=== PATIENT | male | born 1975 | race Caucasian/White ===

== ENCOUNTER 2020-06-27 11:07 | Outpatient (REF) | payer OTHER, SELFPAY ==
--- NOTE | ~2020-06-27 | XR_ITS ---
EXAMINATION: XR LUMBOSACRAL SPINE CLINICAL INFORMATION: Left-sided sciatica COMPARISON: CT 04/07/2016 TECHNIQUE: Three views of the lumbosacral spine. FINDINGS: There is no fracture or subluxation. Vertebral body height and alignment is maintained. Mild disc space narrowing of L4-L5. The sacroiliac joints are symmetric. The visualized sacrum is intact. The bowel gas pattern is unremarkable. XR/XR lumbar spine 2-3V IMPRESSION: Mild disc space narrowing of L4-L5.
== END 2020-06-27 11:08 | disposition home or self-care (01) ==
LOC: HO.XRAY 11:07
PROVIDERS: PCP Family Medicine; Visit Provider Family Medicine
DX: M54.32 Sciatica, left side (principal)
CPT/HCPCS: 72100

== ENCOUNTER 2020-08-23 09:00 | Outpatient (RCR) | payer OTHER, SELFPAY | END 2020-08-24 08:00 | disposition home or self-care (01) | LOC: HO.PT 09:00 | PROVIDERS: PCP Family Medicine; Visit Provider Family Medicine | DX: M54.32 Sciatica, left side (principal) | CPT/HCPCS: 97110; 97112; 97140; 97161 ==

== ENCOUNTER → 2020-12-17 08:41 | Outpatient (BNVA) | payer OTHER, SELFPAY | PROVIDERS: PCP Family Medicine; Visit Provider Internal Medicine Cardiovascular Disease | DX: I48.0 Paroxysmal atrial fibrillation (principal) | CPT/HCPCS: 93005 ==

== ENCOUNTER 2021-05-31 08:29 | Outpatient (REF) | payer OTHER, SELFPAY ==
[2021-05-31 09:39] LABS: Cholesterol 173 mg/dL; Glucose Fasting 83 mg/dL (60-99); HDL Cholesterol 45 mg/dL; LDL Cholesterol Calculated 105 mg/dl; Triglycerides 115 mg/dL
== END 2021-05-31 08:30 | disposition home or self-care (01) ==
LOC: HO.LAB 08:29
PROVIDERS: PCP Family Medicine; Visit Provider Family Medicine
DX: Z82.49 Family history of ischemic heart disease and other diseases of the circulatory system (principal)
CPT/HCPCS: 36415; 80061; 82947

== ENCOUNTER 2023-08-18 22:17 | Emergency (ER) | payer OTHER, SELFPAY ==
--- NOTE | 2023-08-18 | ECG_ITS ---
Test Reason : CHEST PAIN Blood Pressure : / mmHG Vent. Rate : 064 BPM Atrial Rate : 064 BPM P-R Int : 184 ms QRS Dur : 100 ms QT Int : 416 ms P-R-T Axes : 012 003 035 degrees QTc Int : 429 ms Normal sinus rhythm Normal ECG When compared with ECG of 07-JAN-2017 16:06, No significant change was found Referred By: Generic ED Physician Electronically Signed By:CASEY RODRIGUES
[2023-08-18 22:28] VITALS: BP 128/85; PULSE 64; RESP 20; TEMP 37; O2SAT 97; BMI 29.3
--- NOTE | 2023-08-18 22:33 | MHC.EDTECH ---
PATIENT EKG TAKEN AND WAS READ BY PROVIDER .
[2023-08-18] MEDS: Ondansetron ODT 4 MG TAB.RAPDIS TRANSLINGU (22:34)
--- NOTE | 2023-08-18 22:53 | MHC.EDTECH ---
PATIENT BLOOD DRAWN ,FLU/RSV/COVID AND STREP SWAB COLLECTED AND SENT TO LAB .
[2023-08-18 22:54] LABS: MANUAL DIFF FLAG NO
[2023-08-18 22:56] LABS: Basophils Percent Auto 0.6 % (0-2); Eosinophils Absolute Auto 0.6 X10*3/uL (0.0-0.4); Eosinophils Percent Auto 8.8 % (0-4); Hematocrit 43.2 % (42.0-52.0); Hemoglobin 14.8 g/dl (14.0-18.0); Imm Gran Abs Auto 0.02 X10*3/uL (0.00-0.03); Imm Gran Pct Auto 0.3 % (0.0-0.4); Lymphocytes Absolute Auto 1.5 X10*3/uL (1.2-4.9); Lymphocytes Percent Auto 22.8 % (20-40); Mean Corpuscular HGB Conc 34.3 g/dl (31.0-36.0); Mean Corpuscular Hemoglobin 30.5 pg (27.0-33.0); Mean Corpuscular Volume 88.9 fL (80.0-98.0); Mean Platelet Volume 10.1 fL (9.4-12.4); Monocytes Absolute Auto 0.6 X10*3/uL (0.1-1.2); Monocytes Percent Auto 9.4 % (2-11); Neutrophils Absolute Auto 3.9 x10*3/uL (2.0-8.3); Neutrophils Percent Auto 58.1 % (45-73); Platelet Count 211 X10*3/uL (160-400); Red Blood Count 4.86 X10*6/uL (4.60-5.80); Red Cell Distribution Width 11.7 % (11.0-16.0); White Blood Count 6.7 X10*3/uL (4.8-10.8)
[2023-08-18 23:09] LABS: Alanine Aminotransferase 24 U/L (0-40); Albumin Level 4.3 g/dL (3.5-5.0); Alkaline Phosphatase 37 U/L (39-117); Anion Gap 12 (12-20); Aspartate Amino Transferase 20 U/L (5-37); Bilirubin Total 0.3 mg/dL (0.0-1.0); Blood Urea Nitrogen 19 mg/dL (9-16); Calcium 9.3 mg/dL (8.4-10.2); Carbon Dioxide 27 mmol/L (22-29); Chloride 106 mmol/L (96-108); Creatinine Clr Calc Pharmacy 120.9; Estimated Glomerular Filt Rate > 60; Glucose Random 115 mg/dL (60-115); Potassium 3.8 mmol/L (3.3-5.1); Sodium 141 mmol/L (135-145); Total Protein 6.7 g/dL (6.5-8.0)
[2023-08-18 23:12] LABS: IDNOW Serial# 08D9AD1C; Strep A Nucleic Acid Negative (Negative)
[2023-08-18 23:17] LABS: Troponin-I High Sensitivity < 2.7 ng/L (<3.5-35.0)
[2023-08-18 23:33] LABS: Influenza A PCR NEGATIVE (Negative); Influenza B PCR NEGATIVE (Negative); Resp Syncy Virus RNA Qual PCR NEGATIVE (Negative); SARS COV2 PCR INHOUSE NEGATIVE (Negative)
[2023-08-19 01:32] VITALS: BP 107/65; PULSE 56; RESP 18; TEMP 36.6; O2SAT 96
--- NOTE | 2023-08-19 01:34 | ED_ITS ---
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 slightly spinning when he turns his head to the right side came home at 21:00 while sitting noticed chest heaviness without any palpitation no shortness a breath patient did not have any fibrillation episode in last 2 years nonsmoker no substance abuse Related Data Home Medications ?Medication ?Instructions ?Recorded ?Confirmed albuterol sulfate 90 mcg/actuation 2 puff PO QID PRN 12/17/20 12/17/20 aerosol inhaler (ProAir HFA) Previous Rx's ?Medication ?Instructions ?Recorded flecainide 100 mg tablet 100 mg PO Q12H 90 days #180 tabs 12/17/20 diltiazem HCl 120 mg 120 mg PO DAILY #90 caps 12/19/20 capsule,extended release 24 hr meclizine 25 mg tablet 25 mg PO TID PRN dizziness #20 tabs 08/19/23 Allergies Allergy/AdvReac Type Severity Reaction Status Date / Time No Known Allergies Allergy Verified 08/18/23 22:31 [No Known Allergies*] Review of Systems 2 Review of Systems: Yes all other systems are reviewed and are negative PMFSH Past Medical History Medical History Paroxysmal atrial fibrillation Surgical History History of cardioversion Hx of knee surgery Hx of shoulder surgery Family History Family History Father No problems noted. Mother No problems noted. Social History Social History Patient Tobacco Use Status: Never used Tobacco Smoked in Last 30 Days: No Use of substances other than those prescribed or required for medical reasons: No Advance Directives: No Advance Directives Information Provided: No Do you have a plan to hurt others: No Plan Physical Exam 2 Vital Signs: Vital Signs: Last Vital Signs Temp 98.6 F 08/19/23 03:22 Pulse 64 08/19/23 03:22 Resp 18 08/19/23 03:22 BP 103/66 08/19/23 03:22 Pulse Ox 95 08/19/23 03:22 O2 Del Method Room Air 08/19/23 03:22 BMI result Body Mass Index 29.3 Appearance: Alert. Oriented X3. No acute distress. Eyes: PERRLA, No Nystagmus ENT: Pharynx normal. Oral Mucosa moist Neck: Normal inspection. Neck supple. CVS: Normal heart rate and rhythm. Pulses normal. Respiratory: No respiratory distress. Equal air entry bilateral, no wheezing/rales/rhonchi Abdomen: Soft and nontender. Bowel sounds are present, Skin: Skin warm and dry. Normal skin color. Normal skin turgor. Extremities: No lower extremity edema. No calf tenderness Neuro: Oriented X 3. No motor deficit. No sensory deficit.No cerebellar signs , cranial nerves II-XII intact Medications Administered Discontinued Medications Generic Name Dose Route Start Last Admin Trade Name Freq PRN Reason Stop Dose Admin Meclizine HCl 25 mg 08/19/23 02:00 08/19/23 02:17 Meclizine Hcl 25 Mg Tablet PO 08/19/23 02:01 25 mg ONCE ONE Administration Ondansetron HCl 4 mg 08/18/23 22:33 08/18/23 22:34 Ondansetron Odt 4 Mg Tab.Rapdis TRANSLINGU 08/18/23 22:34 4 mg ONCE ONE Administration Medical Decision Making Lab Data [facility] Lab Attestation statement: I reviewed the patient's lab results. 08/18/23 22:50 08/18/23 22:50 Labs: Lab Results 08/18/23 08/19/23 Range/Units 22:50 02:25 WBC 6.7 (4.8-10.8) X10*3/uL RBC 4.86 (4.60-5.80) X10*6/uL Hgb 14.8 (14.0-18.0) g/dl Hct 43.2 (42.0-52.0) % MCV 88.9 (80.0-98.0) fL MCH 30.5 (27.0-33.0) pg MCHC 34.3 (31.0-36.0) g/dl RDW 11.7 (11.0-16.0) % Plt Count 211 (160-400) X10*3/uL MPV 10.1 (9.4-12.4) fL Immature Gran % (Auto) 0.3 (0.0-0.4) % Neut % (Auto) 58.1 (45-73) % Lymph % (Auto) 22.8 (20-40) % Childress % (Auto) 9.4 (2-11) % Eos % (Auto) 8.8 H (0-4) % Baso % (Auto) 0.6 (0-2) % Lymph # (Auto) 1.5 (1.2-4.9) X10*3/uL Childress # (Auto) 0.6 (0.1-1.2) X10*3/uL Eos # (Auto) 0.6 H (0.0-0.4) X10*3/uL Baso # (Auto) 0.0 (0.0-0.2) X10*3/uL Abs Immat Gran (auto) 0.02 (0.00-0.03) X10*3/uL Absolute Neuts (auto) 3.9 (2.0-8.3) x10*3/uL Absolute Nucleated RBC 0.000 (0.0-0.012) X10*3/uL Nucleated RBC % (auto) 0.0 (0.0-0.2) /100WBC Sodium 141 (135-145) mmol/L Potassium 3.8 (3.3-5.1) mmol/L Chloride 106 (96-108) mmol/L Carbon Dioxide 27 (22-29) mmol/L Anion Gap 12 (12-20) BUN 19 H (9-16) mg/dL Creatinine 0.87 (0.5-1.4) mg/dL Estim Creat Clear Calc 120.9 Estimated GFR > 60 Random Glucose 115 (60-115) mg/dL Calcium 9.3 (8.4-10.2) mg/dL Magnesium 2.0 (1.6-2.6) mg/dL Total Bilirubin 0.3 (0.0-1.0) mg/dL AST 20 (5-37) U/L ALT 24 (0-40) U/L Alkaline Phosphatase 37 L (39-117) U/L Troponin I High Sens < 2.7 < 2.7 (<3.5-35.0) ng/L Total Protein 6.7 (6.5-8.0) g/dL Albumin 4.3 (3.5-5.0) g/dL Influenza Type A (PCR) NEGATIVE (Negative) Influenza Type B (PCR) NEGATIVE (Negative) RSV RNA Qual (PCR) NEGATIVE (Negative) SARS-CoV-2 RNA (RT-PCR) NEGATIVE (Negative) S. pyogenes GrpA ABRAHAN Negative (Negative) Discharge Plan Discharge Clinical Impression: Chest pain, Benign paroxysmal positional nystagmus, Heat exhaustion Patient Disposition: Home, Self-Care Instructions: Chest Pain (ED), Heat Exhaustion (ED), Benign Paroxysmal Positional Vertigo (ED) Additional Instructions: Drink plenty of fluids Stay in shaded area Your workup for cardiac event is negative at this time Follow with your center consultant for further evaluation Medicine for dizziness as advised Prescriptions: New meclizine 25 mg tablet 25 mg PO TID PRN (Reason: dizziness) Qty: 20 0RF No Action diltiazem HCl 120 mg capsule,extended release 24hr 120 mg PO DAILY Qty: 90 3RF albuterol sulfate [ProAir HFA] 90 mcg/actuation HFA aerosol inhaler 2 puff PO QID PRN flecainide 100 mg tablet 100 mg PO Q12H 90 Days Qty: 180 3RF Interventions: ED Discharge Assessment Last Done: 08/19/23 03:22 Discharge Date/Time: 08/19/23 03:22 Print Language: Frisian
[2023-08-19] MEDS: Meclizine HCl 25 MG TABLET PO (02:17)
--- NOTE | 2023-08-19 02:42 | PC.NURSE ---
this rn assumed care of pt. pt a&ox4, respirations even and unlabored. pt reporting sudden onset of dizziness when standing, pt reports the room felt as if it were spinning, reports episode of nausea but denies vomiting and diarrhea. pt denies chest pain and sob at this time. pt normal sinus on tele 74-76bpm.
[2023-08-19 02:56] LABS: Troponin-I High Sensitivity < 2.7 ng/L (<3.5-35.0)
[2023-08-19 03:21] VITALS: BP 103/66; PULSE 64; RESP 18; TEMP 37; O2SAT 95
[2023-08-19 03:22] VITALS: BP 103/66; PULSE 64; RESP 18; TEMP 37; O2SAT 95
== END 2023-08-19 03:22 | disposition home or self-care (01) ==
PROVIDERS: Emergency Provider Internal Medicine; PCP Physician Assistant Medical
DX: R07.9 Chest pain, unspecified (principal); H81.10 Benign paroxysmal vertigo, unspecified ear; T67.5XXA Heat exhaustion, unspecified, initial encounter; X58.XXXA Exposure to other specified factors, initial encounter; I48.0 Paroxysmal atrial fibrillation; J45.909 Unspecified asthma, uncomplicated; Y93.9 Activity, unspecified; Y92.9 Unspecified place or not applicable; Y99.9 Unspecified external cause status; Z03.818 Encounter for observation for suspected exposure to other biological agents ruled out; Z79.899 Other long term (current) drug therapy
CPT/HCPCS: 0241U; 36415; 80053; 83735; 84484; 85025; 87651; 93005; 99283; 99285

== ENCOUNTER → 2023-08-18 22:17 | Outpatient (BNV) | payer OTHER, SELFPAY | PROVIDERS: Emergency Provider Internal Medicine; PCP Physician Assistant Medical; Visit Provider Internal Medicine | DX: R07.9 Chest pain, unspecified (principal) | CPT/HCPCS: 93010 ==

== ENCOUNTER 2024-06-07 10:16 | Outpatient (AMB) | payer OTHER, SELFPAY ==
--- NOTE | 2024-06-07 10:26 | A.OFFVIS_ITS ---
Vital Signs 06/07/24 10:28 Height 5 ft 11 in Weight 211 lb BMI 29.4 BP 106/68 Blood Pressure Location Rt brachial Position Sitting Pulse 76 Pulse Source Pulse Oximeter Pulse Oximetry (%) 100 Oxygen Delivery Method Room Air Intake Visit Reasons: Asthma Wildlife Technician Required: No Allergies No Known Allergies [No Known Allergies*] Allergy (Verified 06/07/24 10:27) Medication List - Last Reconciled 06/07/24 by Dary Tenorio, [employer]PER[employer] albuterol sulfate 90 mcg/actuation (ProAir HFA) 2 puffs PO QID PRN diltiazem HCl CD 120 mg PO DAILY flecainide 100 mg PO Q12H 90 days meclizine 25 mg PO TID PRN HPI HPI Asthma: Details: Addi is a pleasant 49 year old male, never smoker with underlying asthma and h/o atrial fibrillation. He was referred by PCP for pulmonary evaluation. He details a lifelong history of asthma, exacerbated by environmental factors such as changes in temperature, activity levels, and seasonal variations. He reports frequent use of albuterol inhalers, sometimes multiple times daily. He previously used Flovent but discontinued due to non-adherence. Seasonal allergies are also relevant, with symptoms worsening in spring and fall, managed by daily [id number] allergy medications. He also has multiple animals at home including a dog, cat, goats, horses and chickens. Denies recent allergy testing. He denies need for hospitalizations or intubations related to respiratory distress. The patient's background includes a diagnosis of atrial fibrillation, which is currently untreated with medications but historically managed with Flecanide and Diltiazem, that he has since d/c on his own. He denies any episodes of atrial fibrillation in the last few years. He last saw cardiology in 2020 at [facility] [place]. His environmental and occupational history reveals considerable exposure to silica, working in construction x 30 years. Although he has never smoked, he endorses secondhand smoke exposure from his occupational environment. The patient denies any recent chest x-rays. He denies any pertinent family history. He did have a sleep study years ago which revealed mild ANTOINETTE, AHI 11, however mostly in supine, opting for conservative measures. He currently denies symptoms of ANTOINETTE. [facility] Medical History Paroxysmal atrial fibrillation Surgical History History of cardioversion Hx of knee surgery Hx of shoulder surgery Family History Father No problems noted. Mother No problems noted. Social History Patient Tobacco Use Status: Never used Tobacco Review of Systems Const Denies chills, Denies excessive sweating, Denies fever(s), Denies headache(s) and Denies night sweats Eyes Denies dry eyes, Denies irritation and Denies itchy eyes ENT Reports Normal hearing present, Denies headache(s), Denies nasal congestion, Denies nasal discharge, Denies post nasal drip and Denies sore throat Card Denies chest pain, Denies chest pain at rest, Denies chest pain with activity, Denies claudication, Denies leg edema, Denies orthopnea and Denies paroxysmal nocturnal dyspnea Resp Denies chest congestion, Denies cough, Denies excessive phlegm production, Denies pain on inspiration, Denies pain with cough, Denies stridor and Denies wheezing Musc Denies myalgias Neuro Reports Normal hearing present and Denies headache(s) Endo Denies excessive sweating Ignacio/Lymph Denies lymphadenopathy Aller/Immun Denies itchy eyes, Denies seasonal rhinorrhea and Denies wheezing Physical Exam Vital Signs: Last Vital Signs Pulse 76 06/07/24 10:28 BP 106/68 06/07/24 10:28 Pulse Ox 100 06/07/24 10:28 Oxygen Delivery Method Room Air 06/07/24 10:28 BMI result Body Mass Index 29.4 Const General: cooperative, healthy appearing, comfortable, no acute distress, well developed and alert Orientation/consciousness: patient oriented x3 Limitations: no limitations HEENT Head: Yes normal to inspection, Yes normocephalic and Yes atraumatic Ears: hearing grossly normal bilaterally and external ears normal Eyes General: appearance normal, both eyes and all related structures Eyelids: Yes eyelids normal Sclerae: sclerae normal EOM: EOMs intact bilaterally Neck Neck: Yes normal visual inspection and Yes no lymphadenopathy Lymphatic: no lymphadenopathy noted Chest Chest palpation & inspection: normal inspection of the chest Resp Effort & Inspection: normal respiratory effort, able to speak in complete sentences, no audible wheezes, no cough, no stridor, not tachypneic, no tripod positioning and no use of accessory muscles Auscultation: clear to auscultation bilaterally Cardio Jugular venous distension: no JVD Rate: regular rate Rhythm: regular rhythm Skin Other: warm, dry General skin exam: no rashes or lesions noted Neuro General: patient oriented x3 Cranial nerves: Yes Normal hearing present Cognition (Neuro): normal cognition Gait exam (Neuro): Normal gait present Extrem General: Yes normal to inspection, Yes capillary refill normal, Yes no clubbing, cyanosis or edema and Yes no pedal edema Psych Appearance: grossly normal and well kempt Speech and movement: Normal speech and movement present and Clear speech present Affect: normal affect Attitude: cooperative Thought process: Normal thought process present Thought content: Normal thought content present Insight: Good insight present (Psych) Judgement: Good judgement present (Psych) Assessment & Plan Assessment & Plan (1) Asthma: Code(s): J45.909 - Unspecified asthma, uncomplicated Category: Medical (2) Environmental allergies: Code(s): Z91.09 - Other allergy status, other than to drugs and biological substances Category: Medical (3) Dyspnea: Code(s): R06.00 - Dyspnea, unspecified Category: Medical Plan Addi's symptoms are likely related to poorly controlled asthma. Will send for PFT and empirically start Breo. Discussed importance of good oral hygiene to prevent thrush. Will send for RAST to assess for an allergic component. Will send for CXR to assess for any underlying parenchymal conditions contributing to symptoms, consider chest CT given silica exposure. Discussed importance of following up with cardiology given h/o atrial fibrillation and self d/c flecanide and diltiazem. All questions were answered and patient is in agreement of plan. Will follow up in 6-8 weeks or sooner if needed. Orders: Orders XR chest 2V 06/07/24 R06.00 - Dyspnea, unspecified Complete Blood Count Auto Diff 06/07/24 Z91.09 - Other allergy status, other than to drugs and biological substances Immunoglobulin E 06/07/24 Z91.09 - Other allergy status, other than to drugs and biological substances Resp Allergy Profile Region I 06/07/24 Z91.09 - Other allergy status, other than to drugs and biological substances Other Ref Test - [facility] [place] 06/07/24 Z91.09 - Other allergy status, other than to drugs and biological substances PFT pulmonary function test 06/07/24 J45.909 - Unspecified asthma, uncomplicated Medications: New fluticasone furoate-vilanterol 100-25 mcg/dose (Breo Ellipta) 1 inh inhalation DAILY 60 ea 3RF Coding Level of Care Code New Pt Level 4 (35755) Diagnoses Asthma J45.909 Environmental allergies Z91.09 Dyspnea R06.00
[2024-06-07 10:28] VITALS: BP 106/68; PULSE 76; O2SAT 100; BMI 29.4
--- OUTSIDE RECORDS SUMMARY | 2024-06-07 11:52 | XMS_ITS | Encounter Summary ---
Author Organization [facility] Address [address] [place] [address] Care Team Providers Care Mosaic Tile Maker Name Role Phone Puneet Iván MANDEL Primary Care Provider [phone] Reason for Visit * Reason Onset Date Comments Special procedure 05/11/2024 Encounter Details Date Type Department Care Team (Late st Contact Info) Description 05/11/2024 Telephone Gastroenterology - [address] [place] [id number] Cr Zambrano MD [address] [place] [address] Special procedure Social History Tobacco Use Types Packs/Day Years Used Date Smoking Tobacco: Never Assessed Sex and Gender Information Value Date Recorded Sex Assigned at Not on file Legal Sex Male 2:27 PM EST Gender Identity Not on file Sexual Orientation Not on file documented as of this encounter Progress Notes * Milagros Cabello - 05/20/2024 10:45 AM EST [facility] J CARLOS ZAMBRANO 07/04/24 930AM - [facility]. * Milagros Cabello - 05/17/2024 12:17 PM EST 2nd attempt to schedule a patient left message to call back * Lay Charles - 05/17/2024 10:48 AM EST PT RETURNING CALL * Brandi Leiva - 05/12/2024 9:31 AM EST 1st attempt to schedule a patient left message to call back * Cecilia Loo MA - 05/11/2024 2:41 PM EST Medications and allergies updated. * Brandi Guerrero - 05/11/2024 2:36 PM EST Records received from [facility] for colonoscopy, given to Adeline to update meds & allergies documented in this encounter Plan of Treatment Not on file documented as of this encounter Visit Diagnoses Not on filedocumented in this encounter Historical Medications * This list may reflect changes made after this encounter. Medication Sig Dispense Quantity Refills Last Filled Start D ate End Date valACYclovir (VALTREX) 1 gram tablet 05/10/2024 albuterol HFA (PROAIR HFA ; PROVENTIL HFA ; VENTOLIN HFA) 90 mcg/actuation inhaler 05/10/2024 added in this encounter Care Teams Mosaic Tile Maker Relationship Specialty Start Date End Date Iván Teixeira PA [address] [place] [id number] PCP - General Physician Pricing/Signage Team Member 05/11/24 documented as of this encounter
--- OUTSIDE RECORDS SUMMARY | 2024-06-07 11:52 | XMS_ITS | Continuity of Care Document ---
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 TEQUILA Green Onset: 2023 Obstructive sleep apnea syndrome TEQUILA Green Onset: 05/27/2023 Premature atrial contraction TEQUILA Green Onset: 05/27/2023 Fatigue TEQUILA Green Onset: 2023 Atrial fibrillation TEQUILA Green Onset: Social History Type Date Description Comments Sex Unknown Lives With Spouse Lives With Sons Lives With Daughter ETOH Use Occasionally consumes alcoho l Tobacco Use Start: Unknown Patient has never smoked Allergies and adverse reactions Description No Known Drug Allergies Medications Active Medications SIG Qnty Indications Ordering Provider Date [id number] Tablets Take 1 Tablet By Mouth Twice Daily For Suppression. Take With Full Glass Of Josie Contreras Albuterol Sulfate JTV323(90Base) mcg/Act Aerosol Inhale 1 puff By Mouth Into The Lungs Every 6 Hours as Needed Iván Teixeira PA Vital Signs Date Vital Result Comment 05/27/2023 3:20pm BP Systolic 100 mmHg BP Diastolic 64 mmHg Heart Rate 69 /min Height 71 inches 5'11 Weight 210.00 lb BMI (Body Mass Index) 29.3 kg/m2 Results Test Acquired Date Facility Test Result H/L Range Note Lipid Panel 05/29/2023 [facility] Cholesterol, Total 238 mg/dL High (<200) Triglyceride 91 mg/dL (<150) 1 HDL Chol 64 mg/dL (>39) LDL Cholesterol , Calculated 156 mg/dL High (0-130) Non HDL Cholesterol (Calc) 174 mg/dL High (<160) Complete Abc With Diff 05/29/2023 [facility] WBC 5.0 K/MM3 (4.0-11. 0) RBC 4.93 M/MM3 (4.70-6. 10) HGB 14.4 GM/DL (13.7-17 .1) HCT 44.1 % (40.5-50 .0) MCV 89.5 FL (80.0-94 .0) MCH 29.2 pg (27.0-34 .0) MCHC 32.7 g/dL Low (33.0-37 .0) PLT 223 K/MM3 (150-460 ) RDW-SD 47.9 FL High (<47.0) MPV 11.0 FL (9.4-12. 4) Automated NRBC 0.0 #/100WBC'S Abs. NRBC 0.0 K/MM3 Neut # 3.1 K/MM3 (1.3-7.0 ) Lymph # 1.2 K/MM3 (0.8-3.1 ) Andrews# 0.4 K/MM3 (0.4-1.3 ) Eo # 0.2 K/MM3 (0.0-0.4 ) Baso # 0.0 K/MM3 (0.0-0.1 ) Abs. Imm Gran 0.0 K/MM3 Neut 61.7 % (44-76) Lymph 24.0 % (15-43) Monocyte 8.7 % (4.5-10. 5) Eo 4.4 % (0-6) Baso 0.8 % (0-2) Imm Gran 0.4 % Free Testosterone 05/29/2023 [facility] Testosterone, Total, LC/MS 259.6 Low 2 Percent Free Testosterone 3.47 3 Free Testosterone, Equilibrium 9.01 4 FSH 05/29/2023 [facility] FSH 3.4 MIU/ML (1.5-12. 4) 5 LH 05/29/2023 [facility] LH 3.0 MIU/ML (1.5-12. 4) 6 Prolactin 05/29/2023 [facility] Prolactin 8.8 NG/ML (4.0-15. 2) 1 Patient not fasting 2 Reference range: 264 .0 to 916.0 Unit: ng/dL (NOTE) This [facility] LC/MS-MS method is currently certified by the CDC Hormone Standardization Program (HoSt). Adult male reference interval is based on a population of healthy nonobese males (BMI <30) between 19 and 39 years old. Patricia et.al. JCEM 2017,102;0139-5851. PMID: 55807535. This test was developed and its performance characteristics determined by [facility]. It has not been cleared or approved by the Food and Drug Administration. 3 Reference range: 1.5 0 to 4.20 Unit: % 4 Reference range: 5.0 0 to 21.00 Unit: ng/dL Test performed at [address] [address] 5 Reference Range: Follicular: 3.5-12.5 mIU/mL Ovulation: 4.7-21.5 mIU/mL Luteal: 1.7-7.7 mIU/mL Postmenopausal: 25.8-134.8 mIU/mL 6 Reference Range: Follicular: 2.4-12.6 mIU/mL Ovulation: 14.0-95.6 mIU/mL Luteal: 1.0-11.4 mIU/mL Postmenopausal: 7.7-58.5 mIU/mL Medical Devices Description No Information Available Encounters Type Date Location Provider Dx Diagnosis Office Visit 05/27/2023 3:00p Main Office TEQUILA Green E29.1 Testicular hypofunction R53.83 Other fatigue R68.82 Decreased libido Assessments Date Code Description Provider 05/29/2023 E29.1 Testicular hypofunction TEQUILA Dangelo 05/27/2023 E29.1 Testicular hypofunction TEQUILA Dangelo 05/27/2023 R53.83 Fatigue NOS TEQUILA Green 05/27/2023 R68.82 Decreased libido TEQUILA Rodriguez Plan of Treatment No Information Available Functional Status Description No Information Available Mental Status Description No Information Available Referrals Description No Information Available
--- OUTSIDE RECORDS SUMMARY | 2024-06-07 11:52 | XMS_ITS | Clinical Summary ---
Author Organization [facility] [address] [facility] Address [address] [place] [address] Phone Care Team Providers Care Transportation Agent Name Role Phone Iván Teixeira Primary Care Provider [phone] Allergies No known active allergies Medications albuterol HFA (PROAIR HFA ; PROVENTIL HFA ; VENTOLIN HFA) 90 mcg/actuation inhaler 05/10/2024 Active valACYclovir (VALTREX) 1 gram tablet 05/10/2024 Active Encounters Date Type Department Care Team Description 05/11/2024 Telephone Gastroenterology - [address] [address] Cr Khalil MD Special procedure from Last 3 Months Social History Tobacco Use Types Packs/Day Years Used Date Smoking Tobacco: Never Assessed Sex and Gender Information Value Date Recorded Sex Assigned at Not on file Legal Sex Male 2:27 PM EST Gender Identity Not on file Sexual Orientation Not on file Plan of Treatment Health Maintenance Due Date Last Done Comments DTaP,Tdap,and Td Vaccines (1 - Tdap) 1993 Hepatitis B Vaccines (1 of 3 - 19+ 3-dose series) 1993 COVID-19 Vaccine ( - 2023-2 5 season) 2023 Influenza Vaccine (#1) 2023 Pneumococcal Vaccine: 50+ Ye ars (1 of 1 - PCV) 2024 Zoster Vaccines (1 of 2) 2024 Cholesterol Screening (Lipid Panel) 05/11/2024 Colorectal Cancer Screening: Colonoscopy 05/11/2024 Depression Screening 05/11/2024 HIV Screening 05/11/2024 Hepatitis C Screening 05/11/2024 Social Influencers of Health Screening 05/11/2024 HIB Vaccines Aged Out No longer eligi ble based on patient's age to complete this topic HPV Vaccines Aged Out No longer eligi ble based on patient's age to complete this topic Hepatitis A Vaccines Aged Out No long er eligible based on patient's age to complete this topic IPV Vaccines Aged Out No longer eligi ble based on patient's age to complete this topic MMR Vaccines Aged Out No longer eligi ble based on patient's age to complete this topic Meningococcal ACWY Vaccine Aged Out N o longer eligible based on patient's age to complete this topic Meningococcal B Vacine Aged Out No lo nger eligible based on patient's age to complete this topic Pneumococcal Vaccine: Pediat rics (0 to 5 Years) and At-Risk Patients (6 to 64 Years) Aged Out No longer eligible b ased on patient's age to complete this topic RSV Immunization Patients Un joleen 20 months Aged Out No longer eligible b ased on patient's age to complete this topic Varicella Vaccines Aged Out No longer eligible based on patient's age to complete this topic Insurance [facility] [address] [place] [address] Care Teams Transportation Agent Relationship Specialty Start Date End Date Iván Teixeira PA [address] [place] [phone] PCP - General Physician Compounding Technician 05/11/24
== END 2024-06-07 10:55 | disposition home or self-care (01) ==
LOC: HO.HPSW 10:17
PROVIDERS: PCP Physician Assistant Medical; Referring Provider Physician Assistant Medical; Visit Provider Nurse Practitioner Family
DX: J45.909 Unspecified asthma, uncomplicated (principal); Z91.09 Other allergy status, other than to drugs and biological substances; R06.00 Dyspnea, unspecified
CPT/HCPCS: 99204

== ENCOUNTER → 2024-06-07 10:16 | Outpatient (BNVA) | payer OTHER, SELFPAY | PROVIDERS: PCP Physician Assistant Medical; Referring Provider Physician Assistant Medical; Visit Provider Nurse Practitioner Family ==

== ENCOUNTER 2024-06-07 11:26 | Outpatient (REF) | payer OTHER, SELFPAY ==
[2024-06-07 14:21] LABS: MANUAL DIFF FLAG NO
[2024-06-07 14:26] LABS: Basophils Absolute Auto 0.1 X10*3/uL (0.0-0.2); Basophils Percent Auto 0.9 % (0-2); Eosinophils Absolute Auto 0.4 X10*3/uL (0.0-0.4); Eosinophils Percent Auto 5.4 % (0-4); Hematocrit 44.7 % (42.0-52.0); Hemoglobin 14.9 g/dl (14.0-18.0); Imm Gran Abs Auto 0.02 X10*3/uL (0.00-0.03); Imm Gran Pct Auto 0.3 % (0.0-0.4); Lymphocytes Absolute Auto 1.3 X10*3/uL (1.2-4.9); Lymphocytes Percent Auto 19.8 % (20-40); Mean Corpuscular HGB Conc 33.3 g/dl (31.0-36.0); Mean Corpuscular Hemoglobin 28.4 pg (27.0-33.0); Mean Corpuscular Volume 85.3 fL (80.0-98.0); Monocytes Absolute Auto 0.5 X10*3/uL (0.1-1.2); Monocytes Percent Auto 7.9 % (2-11); Neutrophils Absolute Auto 4.4 x10*3/uL (2.0-8.3); Neutrophils Percent Auto 65.7 % (45-73); Platelet Count 245 X10*3/uL (160-400); Red Blood Count 5.24 X10*6/uL (4.60-5.80); Red Cell Distribution Width 12.8 % (11.0-16.0); White Blood Count 6.7 X10*3/uL (4.8-10.8)
[2024-06-14 10:51] LABS: Canary Droppings Ab NEGATIVE; Chicken Serum Ab NEGATIVE; Cockatiel Droppings Ab NEGATIVE; Finch Droppings Ab NEGATIVE; Parakeet Droppings Ab NEGATIVE; Parakeet Serum Ab NEGATIVE; Pigeon/Dove Serum Ab NEGATIVE
[2024-06-14 10:52] LABS: Parrot Droppings Ab NEGATIVE; Parrot Serum Ab NEGATIVE; Pigeon/Dove Droppings Ab NEGATIVE
[2024-06-16 12:48] LABS: Class Alternaria alternata 2; Class Aspergillus fumigatus 0/1; Class Bermuda Grass 1; Class Birch 0/1; Class Cat Dander 0; Class Cladosporium herbarum 0; Class Cockroach 1; Class Common Ragweed 1; Class Cottonwood 0/1; Class Derm. pterony 0/1; Class Dermatophagoides farinae 0/1; Class Dog Dander 0; Class Elm 2; Class Maple Box Elder 0/1; Class Mountain Cedar 0/1; Class Mouse Urine Protein 0; Class Mugwort 0/1; Class Oak 1; Class Penicillium crysogenum 0/1; Class Rough Pigweed 1; Class Sheep Sorrel 1; Class Sycamore 1; Class Timothy Grass 2; Class Walnut Tree 0/1; Class White Ash 1; Class White Mulberry 0/1; D001 IgE D pteronyssinus 0.13 kU/L; D002 - IgE D farinae 0.14 kU/L; E001 - IgE Cat Dander <0.10 kU/L; E005 - IgE Dog Dander <0.10 kU/L; E072-IgE Mouse Urine <0.10 kU/L; G002 IgE Bermuda Grass 0.67 kU/L; G006 - IgE Timothy Grass 0.72 kU/L; Immunoglobulin E 55 kU/L (<OR=114); M001 IgE Penicillium chrysogen 0.13 kU/L; M002 - IgE Cladosporium herbar <0.10 kU/L; M003 - IgE Aspergillus fumigat 0.34 kU/L; M006 - IgE Alternaria alternat 1.61 kU/L; T001 IgE Maple/Box Elder 0.29 kU/L; T003 IgE Common Silver Birch 0.18 kU/L; T006 - IgE Cedar, Mountain 0.18 kU/L; T007 - IgE Oak, White 0.47 kU/L; T010 - IgE Walnut 0.34 kU/L; T011 - IgE Maple Leaf Sycamore 0.37 kU/L; T014 - IgE Cottonwood 0.33 kU/L; T015 - IgE Ash, White 0.36 kU/L; T070 - IgE White Mulberry 0.13 kU/L; W001 - IgE Ragweed, Short 0.53 kU/L; W014 IgE Pigweed, Common 0.43 kU/L; W018 IgE Sheep Sorrel 0.69 kU/L
== END 2024-06-07 11:27 | disposition home or self-care (01) ==
LOC: HO.WFDLDS 11:26
PROVIDERS: Visit Provider Nurse Practitioner Family
DX: Z91.09 Other allergy status, other than to drugs and biological substances (principal)
CPT/HCPCS: 36415; 82785; 85025; 86003; 86331

== ENCOUNTER 2024-08-02 08:49 | Outpatient (AMB) | payer OTHER, SELFPAY ==
[2024-08-02 08:52] VITALS: BP 104/68; PULSE 70; O2SAT 97; BMI 29.9
--- NOTE | 2024-08-02 08:52 | A.OFFVIS_ITS ---
Vital Signs 08/02/24 08:52 Height 5 ft 11 in Weight 214 lb 6 oz BMI 29.9 BP 104/68 Blood Pressure Location Rt brachial Position Sitting Pulse 70 Pulse Source Pulse Oximeter Pulse Oximetry (%) 97 Oxygen Delivery Method Room Air Intake Visit Reasons: Asthma Allergies No Known Allergies [No Known Allergies*] Allergy (Verified 08/02/24 08:55) HPI HPI Asthma: Details: Addi is a pleasant 49 year old male, never smoker with underlying asthma and h/o atrial fibrillation. He was initially referred by PCP for pulmonary evaluation. He details a lifelong history of asthma, exacerbated by environmental factors such as changes in temperature, activity levels, and seasonal variations. He reported frequent use of albuterol inhalers, sometimes multiple times daily, previously on Flovent with suboptimal effect. At the last visit, Breo then Advair were sent however both were not financially feasible, therefore has only been using Albuterol MDI. An order was also placed for CXR and PFT however patient did not have these performed/scheduled. Today presents to review RAST. Since the last visit, he was evaluated by ENT however report not available. [facility] Medical History Paroxysmal atrial fibrillation Surgical History History of cardioversion Hx of knee surgery Hx of shoulder surgery Family History Father No problems noted. Mother No problems noted. Social History Patient Tobacco Use Status: Never used Tobacco Review of Systems Const Denies chills, Denies excessive sweating, Denies fever(s), Denies headache(s) and Denies night sweats Eyes Denies dry eyes, Denies irritation and Reports itchy eyes ENT Reports Normal hearing present, Denies headache(s), Denies nasal congestion, Denies nasal discharge, Reports post nasal drip and Denies sore throat Card Denies chest pain, Denies chest pain at rest, Denies chest pain with activity, Denies claudication, Denies leg edema, Reports dyspnea on exertion, Denies orthopnea and Denies paroxysmal nocturnal dyspnea Resp Denies change in phlegm color, Denies chest congestion, Reports cough, Denies hemoptysis, Denies excessive phlegm production, Denies pain on inspiration, Denies pain with cough, Reports dyspnea on exertion, Denies stridor and Denies wheezing Musc Denies myalgias Neuro Reports Normal hearing present and Denies headache(s) Endo Denies excessive sweating Ignacio/Lymph Denies lymphadenopathy Aller/Immun Reports itchy eyes and Denies wheezing Physical Exam Vital Signs: Last Vital Signs Pulse 70 08/02/24 08:52 BP 104/68 08/02/24 08:52 Pulse Ox 97 08/02/24 08:52 Oxygen Delivery Method Room Air 08/02/24 08:52 BMI result Body Mass Index 29.9 Const General: cooperative, healthy appearing, comfortable, no acute distress, well developed and alert Orientation/consciousness: patient oriented x3 Limitations: no limitations HEENT Head: Yes normal to inspection, Yes normocephalic and Yes atraumatic Ears: hearing grossly normal bilaterally and external ears normal Eyes General: appearance normal, both eyes and all related structures Eyelids: Yes eyelids normal Sclerae: sclerae normal EOM: EOMs intact bilaterally Neck Neck: Yes normal visual inspection and Yes no lymphadenopathy Lymphatic: no lymphadenopathy noted Chest Chest palpation & inspection: normal inspection of the chest Resp Effort & Inspection: normal respiratory effort, able to speak in complete sentences, no audible wheezes, no cough, no stridor, not tachypneic, no tripod positioning and no use of accessory muscles Auscultation: clear to auscultation bilaterally Cardio Jugular venous distension: no JVD Rate: regular rate Rhythm: regular rhythm Skin Other: warm, dry General skin exam: no rashes or lesions noted Neuro General: patient oriented x3 Cranial nerves: Yes Normal hearing present Cognition (Neuro): normal cognition Gait exam (Neuro): Normal gait present Extrem General: Yes normal to inspection, Yes capillary refill normal, Yes no clubbing, cyanosis or edema and Yes no pedal edema Psych Appearance: grossly normal and well kempt Speech and movement: Normal speech and movement present and Clear speech present Affect: normal affect Attitude: cooperative Thought process: Normal thought process present Thought content: Normal thought content present Insight: Good insight present (Psych) Judgement: Good judgement present (Psych) Assessment & Plan Assessment & Plan (1) Asthma: Code(s): J45.909 - Unspecified asthma, uncomplicated Category: Medical (2) Environmental allergies: Code(s): Z91.09 - Other allergy status, other than to drugs and biological substances Category: Medical (3) Dyspnea: Code(s): R06.00 - Dyspnea, unspecified Category: Medical Plan Reviewed RAST which revealed multiple environmental allergens, encouraged daily use of antihistamine. Patient given number for centralized scheduling to scheduled PFT. At the time of his PFT will obtain CXR. Will attempt to send in AirDuo as Breo/Advair costly. He is aware to call office if unable to obtain. All questions were answered and patient is in agreement of plan. Will follow up to review results or sooner if needed. Medications: New fluticasone propion-salmeterol 113-14 mcg/actuation (AirDuo RespiClick) 1 inh inhalation BID 1 ea 6RF Discontinued fluticasone propion-salmeterol 115-21 mcg/actuation (Advair HFA) Discontinued Reason: Insurance Denied 2 puffs inhalation Q12H 12 grams 3RF fluticasone furoate-vilanterol 100-25 mcg/dose (Breo Ellipta) Discontinued Reason: Insurance Denied 1 inh inhalation DAILY 60 ea 3RF Coding Level of Care Code Est Pt Level 3 (24998) Diagnoses Asthma J45.909 Environmental allergies Z91.09 Dyspnea R06.00
--- OUTSIDE RECORDS SUMMARY | 2024-08-02 09:13 | XMS_ITS | Continuity of Care Document ---
Author Organization [facility] [address] [place] [address] Phone [phone] Care Team Providers Care Rechecker Name Role Phone Iván Teixeira Care Team Information Receiv er [phone] Problems Active Problems Provider Date Asthma TEQUILA [...] Medications SIG Qnty Indications Ordering Provider Date [id number] Tablets Take 1 Tablet By Mouth Twice Daily For Suppression. Take With Full Glass Of Josie Contreras Albuterol Sulfate NCY900(90Base) mcg/Act Aerosol Inhale 1 puff By Mouth [...] Result H/L Range Note Lipid Panel 05/29/2023 [facility] Cholesterol, Total 238 mg/dL High (<200) Triglyceride 91 mg/dL (<150) 1 HDL Chol 64 mg/dL (>39) LDL Cholesterol , Calculated 156 mg/dL High (0-130) Non HDL Cholesterol (Calc) 174 mg/dL High (<160) Complete Abc With Diff 05/29/2023 [facility] WBC 5.0 K/MM3 (4.0-11. [...] ) Lymph # 1.2 K/MM3 (0.8-3.1 ) Cascade# 0.4 K/MM3 (0.4-1.3 ) Eo # 0.2 K/MM3 (0.0-0.4 ) Baso # 0.0 K/MM3 (0.0-0.1 ) Abs. Imm Gran 0.0 K/MM3 Neut 61.7 % (44-76) Lymph 24.0 % (15-43) Monocyte 8.7 % (4.5-10. 5) Eo 4.4 % (0-6) Baso 0.8 % (0-2) Imm Gran 0.4 % Free Testosterone 05/29/2023 [facility] Testosterone, Total, LC/MS 259.6 Low 2 Percent Free Testosterone 3.47 3 Free Testosterone, Equilibrium 9.01 4 FSH 05/29/2023 [facility] FSH 3.4 MIU/ML (1.5-12. 4) 5 LH 05/29/2023 [facility] LH 3.0 MIU/ML (1.5-12. 4) 6 Prolactin 05/29/2023 [facility] Prolactin 8.8 NG/ML (4.0-15. 2) 1 Patient not fasting 2 Reference range: 264 .0 to 916.0 Unit: ng/dL (NOTE) This [facility] LC/MS-MS method is currently certified by the CDC Hormone Standardization Program (HoSt). Adult male reference interval is based on a population of healthy nonobese males (BMI <30) between 19 and 39 years old. Patricia et.al. JCEM 2017,102;0342-6928. PMID: 63952360. This test was developed and its performance characteristics determined by [facility]. It has not been cleared or approved by the Food and Drug Administration. 3 Reference range: 1.5 0 to 4.20 Unit: % 4 Reference range: 5.0 0 to 21.00 Unit: ng/dL Test performed at [address] [address] 5 Reference Range: Follicular: 3.5-12.5 mIU/mL Ovulation: [...]
--- OUTSIDE RECORDS SUMMARY | 2024-08-02 09:13 | XMS_ITS | Clinical Summary ---
Author Organization [address] Address [address] [place] [address] Phone Care Team Providers Care Right Of Way Clearer Name Role Phone Iván Teixeira Primary Care Provider Allergies No known active allergies Medications albuterol HFA (PROAIR HFA ; PROVENTIL HFA ; VENTOLIN HFA) 90 mcg/actuation inhaler 5 Active valACYclovir (VALTREX) 1 gram tablet 5 Active polyethylene glycol (Golytely) 236-22.74-6.74 -5.86 gram solution Take 4L by mouth once for one dose. May substitue any PEG. Starting at 6PM the night before your procedure drink 1 8oz glasses at your own pace until you complete half of the gallon. Finish 2nd half of the gallon 5 hours before your procedure. 4000 mL 5 Active Encounters Date Type Department Care Team Description 06/21/2024 Telephone Gastroenterology - [address] [place] [phone] Cr Khalil MD Special Procedure R/S 05/11/2024 Telephone Gastroenterology - [address] [place] [phone] Cr Khalil MD Special procedure from Last [...] - 19+ 3-dose series) 1993 COVID-19 Vaccine (1 - 2023-2 5 season) 2023 Pneumococcal Vaccine: 50+ Ye ars (1 of 1 - PCV) 2024 Zoster Vaccines (1 of 2) 2024 Cholesterol Screening (Lipid Panel) 05/11/2024 Colorectal Cancer Screening: Colonoscopy 05/11/2024 Depression Screening 05/11/2024 HIV Screening 05/11/2024 Hepatitis C Screening 05/11/2024 Social Influencers of Health Screening 05/11/2024 Influenza Vaccine (Season Ended) 2024 HIB Vaccines Aged Out No longer eligi [...] age to complete this topic Meningococcal B Vaccine Aged Out No l onger eligible based on patient's age to complete [...] to complete this topic Insurance [facility] [address] [place] [address] Care Teams [address] Of Way Clearer Relationship Specialty Start Date End Date Iván Teixeira PA PCP - General Physician Lug Breaker And Wire Puller 05/11/24
== END 2024-08-02 09:26 | disposition home or self-care (01) ==
LOC: HO.HPSW 08:49
PROVIDERS: PCP Physician Assistant Medical; Visit Provider Nurse Practitioner Family
DX: J45.909 Unspecified asthma, uncomplicated (principal); Z91.09 Other allergy status, other than to drugs and biological substances; R06.00 Dyspnea, unspecified
CPT/HCPCS: 99213

== ENCOUNTER → 2024-08-02 08:49 | Outpatient (BNVA) | payer OTHER, SELFPAY | PROVIDERS: PCP Physician Assistant Medical; Visit Provider Nurse Practitioner Family ==

== ENCOUNTER 2024-09-22 07:50 | Outpatient (AMB) | payer OTHER, SELFPAY ==
--- OUTSIDE RECORDS SUMMARY | 2024-09-22 07:51 | XMS_ITS | Data Portability ---
Author Organization [place] - [facility] Address [address] [place] [phone] Care Team Providers Care Concrete Batch Plant Operator Name Role Phone JEREMIAS STUBBS Referring Provider [phone] Assessment Encounter Date Assessment Date Assessment LastModified by Organization Details LastModified Time 06/16/2024 06/16/2024 Patient referred by carton and can supply supervisor due to silica exposure. History consistent with persistent asthma and allergic rhinitis. Physical exam and flexible laryngoscopy unrevealing. Sinonasal mucosa is normal, as is the larynx and all structures between. Reassurance provided therein. For his seasonal rhinitis symptoms, we reviewed he could continue his oral antihistamine seasonally. He could consider an intranasal steroid or antihistamine spray. Offered allergy testing, which patient declined. Patient discharged to PCP and carton and can supply supervisor. He may return for any otolaryngologic concerns that arise. [email or web address] Not available 06/16/2024 15:24:40 Plan of Treatment Reminders Order Date Submit Date Provider Last Modified By Organization Details Last Modified Time Details Appointments None record ed. Lab None record ed. Referral None record ed. Procedures None record ed. Surgeries None record ed. Imaging None record ed. Medication Orders None record ed. Patient TargetsNo targets recorded. Patient InstructionsNo instructions recorded. Reason for Referral None Reported. 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 side; Note: Date Diagnosed : 11/11/2019 3:32 PM (H90.12) Not Available [facility] 4 03:27:07 Allergic rhinitis 09959314 Active 2024 BRIGIDA CASTRO PA-C [address] [place] [address],[place] [address], [place], [address] , [facility] 5 15:22:59 Asthma 699091140 Active 2024 BRIGIDA CASTRO PA-C [address] [place] [address],[place] [address], [facility] [place], [address] , [facility] 5 15:23:41 Problem Notes None recorded. Procedures Surgical History Date Name Laterality Status Provider Name and Address Organization Details Recorded Time 06/17/19 25 Fiberoptic Laryngoscopy (Comprehensive) completed BRIGIDA CASTRO PA-C [address] [place] [address],[place] [address], [place], [address], [facility] 06/16/2024 10:46:06 Imaging Results None recorded. Procedure Notes None recorded. Medical Equipment None Reported. Allergies No known drug allergies Medications Name Sig Start Date Stop Date Status Note LastModified by Organization Details LastModified Time valacyclo vir 1 gram tablet TAKE 1 TABLET BY MOUTH TWICE A DAY active Not Available Not Available No t Available cephalexi n 250 mg capsule PLEASE SEE ATTACHED FOR DETAILED DIRECTIO NS 06/16 completed Not Available Not Available Not Available prednison e 20 mg tablet TAKE 1 TABLET BY MOUTH DAILY WITH BREAKFAS T 06/16 completed Not Available Not Available Not Available minoxidil 2.5 mg tablet TAKE 1 TABLET BY MOUTH EVERY DAY active Not Available Not Available No t Available famciclov ir 500 mg tablet 2018 active Medicati on ID: [id number] D uration Value: 90 Brand Name: famciclo vir Send Method: E-Prescr ibed Sub s Allowed: subs OK Speci al Instruct ion: TK 1 T PO BID Medi cationGe nericNam e: famciclo vir Not Available Not Available Not Available [facility] 25 mg tablet TAKE 1 TABLET BY MOUTH THREE TIMES DAILY NEEDED FOR DIZZINES S 06/16 completed Not Available Not Available Not Available benzonata te 100 mg capsule TAKE 1 CAPSULE BY MOUTH 3 TIMES A DAY NEEDED. 06/16 completed Not Available Not Available Not Available flecainid e 100 mg tablet 03/27 completed Medicati on ID: [id number] D uration Value: 90 Brand Name: flecaini de Send Method: E-Prescr ibed Sub s Allowed: subs OK Speci al Instruct ion: TAKE 1 TABLET BY MOUTH TWICE A DAY Medi cationGe nericNam e: flecaini de Not Available Not Available Not Available diltiazem CD 120 mg capsule,e xtended release 24 hr 04/30 completed Medicati on ID: [id number] D uration Value: 90 Brand Name: diltiaze m HCl Send Method: E-Prescr ibed Sub s Allowed: subs OK Speci al Instruct ion: TAKE 1 CAPSULE BY MOUTH ONCE DAILY Me dication GenericN kaushal: diltiaze m HCl Not Available Not Available Not Available mupirocin 2 % topical ointment APPLY THIN FILM TOPICALL Y TO RASH ON RIGHT CHEEK 3 TIMES A DAY FOR 7 DAYS active Not Available Not Available No t Available albuterol sulfate HFA 90 mcg/actua tion aerosol inhaler INHALE 1 PUFF EVERY 6 HOURS NEEDED active Not Available Not Available No t Available Clomid 50 mg tablet TAKE 1 TABLET BY MOUTH EVERY OTHER DAY active Not Available Not Available No t Available Vitals Date Recorded Body height Body mass index (BMI) Body weight Provider Name and Address Organization Details Last Updated DateTime 06/16/2024 180.34 cm 28.6 kg/m2 59504.44 g Lina White [place] - [facility] 06/16/2024 10:27:53 Social History None recorded. Functional Status None recorded. Mental Status None recorded. Family History Nothing Reported. Medical History Condition Response Allergies/Hayfever Y Heart Problems Y Anxiety N Tonsil Infections N Emphysema N Migraines N Thyroid Problems N Glaucoma N Depression N COPD N Developmental Delay N Nasal or Sinus Problems N Anemia N Immune System Disorder N Anesthesia Complications N Heart Attack (ID) N Other Skin Condition N Diabetes N Rhinitis N Bleeding Disorder N Food Allergy N Arthritis Y Hearing Loss N Hyperlipidemia N Cancer N Stroke N Dementia N Nasal polyps N Asthma Y High Cholesterol N Sleep Disorder N GERD/Reflux N Liver Disease N Headaches N Fibromyalgia N Hypertension N Speech Delay N Kidney Disease N Past Encounters Encounter ID Performer Location Encounter Start Date Encounter Closed Date Diagnosis/Indication Diagnosis SNOMED-CT Code Diagnosis ICD10 Code Diagnosis Note [id number] BRIGIDA CASTRO PA-C [facility] [address] [place] [address] 06/16/2024 10:16:46 06/16/2024 10:47:11 Allergic rhinitis 36093127 J30.9 Exposure t o potentially hazardous chemical 2804378495 00568 Z77.098 Asthma 073268471 J45.90 9 Health Concerns Section Related Observation LastModified by Organization Detai ls LastModified Time None Recorded Concern Status LastModified by Organization Details LastModified Time None Recorded Advance Directives Directive None Recorded Payers Insurance Date Sequence Insurance Name Policy Number Policy Alfredo Covered Member ID Alfredo Member ID Guarantor Name 06/20/[address] [place] [address] [id number] Addi Layne [id number] Addi Layne Notes Date Note Type Note Provider Name and Address Organization Details Recorded Time 06/16/2024 text/html 49 year old male presents for nasal evaluation. Concrete Journeyman wanted him evaluated due to silica exposure. Concrete Journeyman is treating him for asthma. Uses an albuterol inhaler sporadically throughout the year, more so in the spring and fall. He works outside every day. Has some rhinorrhea, sneezing, ocular itching. Takes a daily antihistamine during the spring and fall. He has just been prescribed a steroid inhaler for BID use but has not yet picked this up. No pressure in sinus distribution. Nasal drainage, when presents, is clear or white. Sense of smell is good. No eczema. Has never taken aspirin. Has never noticed any change in nasal symptoms with alcohol intake. No hoarseness, hemoptysis, sore throat, nor dysphagia. Never a tobacco smoker nor a heavy drinker. BRIGIDA CASTRO PA-C [address] [place] [address], [phone], [facility] - [facility] 06/16/2024 15:25:02
--- OUTSIDE RECORDS SUMMARY | 2024-09-22 07:52 | XMS_ITS | Clinical Summary ---
Author Organization [facility] [address] [facility] Address [address] [place] [address] Phone Care Team Providers Care Superintendent Electric Power Name Role Phone Iván Teixeira Primary Care Provider [phone] Allergies No known active allergies Medications albuterol [...] before your procedure. 4000 mL 5 Active Social History Tobacco Use Types Packs/Day Years [...] Vaccine ( - 2023-2 5 season) 2023 Pneumococcal Vaccine: 50+ Ye ars (1 of 1 - PCV) 2024 Zoster Vaccines (1 of 2) 2024 Cholesterol Screening (Lipid Panel) 05/11/2024 Colorectal Cancer Screening: Colonoscopy 05/11/2024 Depression Screening 05/11/2024 HIV Screening 05/11/2024 Hepatitis C Screening 05/11/2024 Social Influencers of Health Screening 05/11/2024 Influenza Vaccine (#1) 2024 HIB Vaccines Aged Out No longer [...] patient's age to complete this topic Insurance [facility] Care Teams Superintendent Electric Power Relationship Specialty Start Date End Date Iván Teixeira PA PCP - General Physician [employer]fusion 05/11/24
--- OUTSIDE RECORDS SUMMARY | 2024-09-22 07:52 | XMS_ITS | Continuity of Care Document ---
Author Organization [facility] [address] [place] [address] Phone [phone] Care Team Providers Care Shovel Mechanic Name Role Phone Iván Teixeira Care Team Information Receiv er [phone] Problems Active Problems Provider Date Asthma TEQUILA [...] Social History Type Date Description Comments Sex Male Sex Unknown Lives With Spouse Lives With Sons Lives With Daughter ETOH Use Occasionally consumes alcoho l Tobacco Use Start: Unknown Patient has never smoked Allergies and adverse reactions Description No Known Drug Allergies Medications Active Medications SIG Qnty Indications Ordering Provider Date [id number] Tablets Take 1 Tablet By Mouth Twice Daily For Suppression. Take With Full Glass Of Jsoie Contreras Albuterol Sulfate FPG482(90Base) mcg/Act Aerosol Inhale 1 puff By Mouth [...] Result H/L Range Note Lipid Panel 05/29/2023 [facility] Cholesterol, Total 238 mg/dL High (<200) Triglyceride 91 mg/dL (<150) 1 HDL Chol 64 mg/dL (>39) LDL Cholesterol , Calculated 156 mg/dL High (0-130) Non HDL Cholesterol (Calc) 174 mg/dL High (<160) Complete Abc With Diff 05/29/2023 [facility] WBC 5.0 K/MM3 (4.0-11. [...] ) Lymph # 1.2 K/MM3 (0.8-3.1 ) [place]# 0.4 K/MM3 (0.4-1.3 ) Eo # 0.2 K/MM3 (0.0-0.4 ) Baso # 0.0 K/MM3 (0.0-0.1 ) Abs. Imm Gran 0.0 K/MM3 Neut 61.7 % (44-76) Lymph 24.0 % (15-43) Monocyte 8.7 % (4.5-10. 5) Eo 4.4 % (0-6) Baso 0.8 % (0-2) Imm Gran 0.4 % Free Testosterone 05/29/2023 [facility] Testosterone, Total, LC/MS 259.6 Low 2 Percent Free Testosterone 3.47 3 Free Testosterone, Equilibrium 9.01 4 FSH 05/29/2023 [facility] FSH 3.4 MIU/ML (1.5-12. 4) 5 LH 05/29/2023 [facility] LH 3.0 MIU/ML (1.5-12. 4) 6 Prolactin 05/29/2023 [facility] Prolactin 8.8 NG/ML (4.0-15. 2) 1 Patient not fasting 2 Reference range: 264 .0 to 916.0 Unit: ng/dL (NOTE) This [facility] LC/MS-MS method is currently certified by the CDC Hormone Standardization Program (HoSt). Adult male reference interval is based on a population of healthy nonobese males (BMI <30) between 19 and 39 years old. Patricia et.al. JCEM 2017,102;4389-8984. PMID: 31386552. This test was developed and its performance characteristics determined by [facility] [employer] It has not been cleared or approved by the Food and Drug Administration. 3 Reference range: 1.5 0 to 4.20 Unit: % 4 Reference range: 5.0 0 to 21.00 Unit: ng/dL Test performed at [address] [address] 5 Reference Range: Follicular: 3.5-12.5 mIU/mL Ovulation: [...]
--- NOTE | 2024-09-22 08:12 | MHC.OFFVIS ---
Intake Visit Reasons: vasectomy consultation Intake Note: New Patient is present for VASECTOMY REVERSAL CONSULTATION Urology Rx:NONE Blood Thinners:NONE Accompanied by: Spouse Allergies No Known Allergies (No Known Allergies*) Allergy (Verified 09/22/24 08:13) HPI Comments Details: [facility] Medical History Paroxysmal atrial fibrillation Surgical History History of cardioversion Hx of knee surgery Hx of shoulder surgery Family History Father No problems noted. Mother No problems noted. Social History Patient Tobacco Use Status: Never used Tobacco Coding
--- NOTE | 2024-09-22 08:38 | A.OFFVIS_ITS ---
Intake Visit Reasons: vasectomy consultation Intake Note: Patient is present for VASCTOMY CONSULTATION Urology Medication:NONE Antibiotic Allergy:NONE Blood Thinner:NONE Laundry Room Attendant Required: No Allergies No Known Allergies (No Known Allergies*) Allergy (Verified 09/22/24 08:39) HPI Comments Details: Mark is a pleasant male. He is a patient of . He is seen for the following urologic conditions - male infertility - testicular insufficiency Accompanied by his partner Prior vasectomy approximately 2011 Children with prior partner Discussed process of vasectomy reversal and 12-18 month timeframe for appearance of sperm Given time since vasectomy success rate would be 70-80% Partner is 36 years old Concomitant gynecologic issues include endometriosis Based on partner age and concomitant gynecologic issues recommendation made to pursue reproductive assisted techniques [facility] [place] Testicular insufficiency Reports borderline low testosterone previously detected Had poor response to Clomid with joint pain Discussed this was likely due to the estrogenic component zuclomifene Recommend trial enclomiphene Prescription provided Three-month follow-up lab work [facility] Medical History Paroxysmal atrial fibrillation Surgical History History of cardioversion Hx of knee surgery Hx of shoulder surgery Family History Father No problems noted. Mother No problems noted. Social History Patient Tobacco Use Status: Never used Tobacco Review of Systems Const Denies chills, Denies fever(s) and Denies headache(s) Eyes Denies dry eyes, Denies irritation and Reports itchy eyes ENT Reports Normal hearing present, Denies headache(s), Denies nasal congestion, Denies nasal discharge, Reports post nasal drip and Denies sore throat Card Reports no additional complaints and Denies syncope Resp Denies cough and Denies wheezing GI Denies abdominal pain and Denies heartburn Reports as per HPI and Denies change in libido Musc Denies myalgias Neuro Reports Normal hearing present, Denies syncope and Denies headache(s) Psych Denies change in libido Endo Denies change in libido Ignacio/Lymph Denies lymphadenopathy Aller/Immun Reports itchy eyes and Denies wheezing Physical Exam Const General: cooperative, healthy appearing, comfortable and no acute distress Orientation/consciousness: patient oriented x3 Limitations: no limitations HEENT Head: Yes normal to inspection, Yes normocephalic and Yes atraumatic Ears: hearing grossly normal bilaterally and external ears normal Face and sinus: Yes normal facial exam Mouth: moist mucous membranes Eyes General: appearance normal, both eyes and all related structures Eyelids: Yes eyelids normal Sclerae: sclerae normal EOM: EOMs intact bilaterally Neck Neck: Yes normal visual inspection, Yes full ROM and Yes trachea midline Lymphatic: no lymphadenopathy noted Chest Chest palpation & inspection: normal inspection of the chest Resp Effort & Inspection: normal respiratory effort, able to speak in complete sentences and no respiratory distress Auscultation: clear to auscultation bilaterally Cardio Jugular venous distension: no JVD Rate: regular rate Rhythm: regular rhythm GI Inspection: Yes normal to inspection Back/Spine/Pelvis Cervical Spine: normal cervical lordosis Thoracic/Lumbar Spine: thoracic and lumbar spine normal to inspection Skin Other: warm, dry General skin exam: no rashes or lesions noted Neuro General: patient oriented x3, gait normal, tone normal and moves all extremities Cranial nerves: Yes Normal hearing present Cognition (Neuro): normal cognition Gait exam (Neuro): Normal gait present Extrem General: Yes normal to inspection and Yes capillary refill normal Psych Appearance: grossly normal and well kempt Speech and movement: Normal speech and movement present and Clear speech present Affect: normal affect Attitude: cooperative Thought process: Normal thought process present Thought content: Normal thought content present Insight: Good insight present (Psych) Judgement: Good judgement present (Psych) Assessment & Plan Assessment & Plan (1) Hypogonadism in male: Code(s): E29.1 - Testicular hypofunction Category: Medical (2) Testicular insufficiency: Code(s): E29.1 - Testicular hypofunction Category: Medical (3) Asthma: Code(s): J45.909 - Unspecified asthma, uncomplicated Category: Medical (4) Environmental allergies: Code(s): Z91.09 - Other allergy status, other than to drugs and biological substances Category: Medical (5) Dyspnea: Code(s): R06.00 - Dyspnea, unspecified Category: Medical Plan Trial enclomiphene 12.5 mg daily Lab work three-month Orders: Orders Testosterone, Total 2 Months E29.1 - Testicular hypofunction Lutenizing Hormone 2 Months E29.1 - Testicular hypofunction Medications: New [enclomiphene 12.5 mg] Patient Cell Number - [phone] 1 tab PO DAILY 90 days 90 tabs 0RF Care [facility] [place] - Fax E29.1 - Testicular hypofunction [enclomiphene] [facility] [place] - Fax Patient Cell Number - [phone] 1 tab PO DAILY 90 tabs 0RF 90 days E29.1 - Testicular hypofunction Patient Instructions: This note is constructed using voice recognition software. While every effort has been made to ensure accuracy health inspector errors may have been included. Imaging studies, laboratory and physical exam results were discussed and reviewed in detail. No major barriers to patient understanding were identified. An opportunity to ask questions regarding the treatment plan was provided. All questions were answered. The patient expressed understanding and agreement with the above treatment plan. The patient is aware they should contact our office by phone for worsening of their current condition or the appearance of new urologic symptoms. Compliance is encouraged with any medications and followup testing that is ordered. It is a privilege to participate in the urologic care of your patient. If you have any questions or concerns regarding treatment for the above conditions, or other urologic issues, please do not hesitate to contact me. The office telephone contact is [phone]. Sincerely, Dr Tripp Lakhani MD, [facility] - Urology Compassionate Specialist Care for the Genitourinary System Coding Level of Care Code New Pt Level 4 (80133) Diagnoses Hypogonadism in male E29.1 Testicular insufficiency E29.1 Asthma J45.909 Environmental allergies Z91.09 Dyspnea R06.00
== END 2024-09-22 09:24 | disposition home or self-care (01) ==
PROVIDERS: PCP Physician Assistant Medical; Visit Provider Urology
DX: E29.1 Testicular hypofunction (principal); J45.909 Unspecified asthma, uncomplicated; Z91.09 Other allergy status, other than to drugs and biological substances; R06.00 Dyspnea, unspecified
CPT/HCPCS: 99204

== ENCOUNTER 2024-11-15 10:53 | Outpatient (REF) | payer OTHER, SELFPAY ==
--- OUTSIDE RECORDS SUMMARY | 2024-11-15 11:46 | XMS_ITS | Continuity of Care Document ---
Author Organization [facility] [address] [place] [address] Phone [phone] Care Team Providers Care Distributor Cleaner Name Role Phone Iván Teixeira Care Team Information Receiv er [phone] Problems Active Problems Provider Date Asthma TEQUILA [...] Medications SIG Qnty Indications Ordering Provider Date [id number] Tablets Take 1 Tablet By Mouth Twice Daily For Suppression. Take With Full Glass Of Josie Contreras Albuterol Sulfate HTI558(90Base) mcg/Act Aerosol Inhale 1 puff By Mouth [...] Result H/L Range Note Lipid Panel 05/29/2023 [facility] Cholesterol, Total 238 mg/dL High (<200) Triglyceride 91 mg/dL (<150) 1 HDL Chol 64 mg/dL (>39) LDL Cholesterol , Calculated 156 mg/dL High (0-130) Non HDL Cholesterol (Calc) 174 mg/dL High (<160) Complete Abc With Diff 05/29/2023 [facility] WBC 5.0 K/MM3 (4.0-11. 0) [...] ) Lymph # 1.2 K/MM3 (0.8-3.1 ) [place]# 0.4 K/MM3 (0.4-1.3 ) Eo # 0.2 K/MM3 (0.0-0.4 ) Baso # 0.0 K/MM3 (0.0-0.1 ) Abs. Imm Gran 0.0 K/MM3 Neut 61.7 % (44-76) Lymph 24.0 % (15-43) Monocyte 8.7 % (4.5-10. 5) Eo 4.4 % (0-6) Baso 0.8 % (0-2) Imm Gran 0.4 % Free Testosterone 05/29/2023 [facility] Testosterone, Total, LC/MS 259.6 Low 2 Percent Free Testosterone 3.47 3 Free Testosterone, Equilibrium 9.01 4 FSH 05/29/2023 [facility] FSH 3.4 MIU/ML (1.5-12. 4) 5 LH 05/29/2023 [facility] LH 3.0 MIU/ML (1.5-12. 4) 6 Prolactin 05/29/2023 [facility] Prolactin 8.8 NG/ML (4.0-15. 2) 1 Patient not fasting 2 Reference range: 264 .0 to 916.0 Unit: ng/dL (NOTE) This [facility] LC/MS-MS method is currently certified by the CDC Hormone Standardization Program (HoSt). Adult male reference interval is based on a population of healthy nonobese males (BMI <30) between 19 and 39 years old. Patricia et.al. JCEM 2017,102;2167-6914. PMID: 78660947. This test was developed and its performance characteristics determined by [facility]. It has not been cleared or approved by the Food and Drug Administration. 3 Reference range: 1.5 0 to 4.20 Unit: % 4 Reference range: 5.0 0 to 21.00 Unit: ng/dL Test performed at [address] [address] 5 Reference Range: Follicular: 3.5-12.5 mIU/mL Ovulation: [...]
--- OUTSIDE RECORDS SUMMARY | 2024-11-15 11:46 | XMS_ITS | Clinical Summary ---
Author Organization [facility] [address] [facility] Address [address] [place] [address] Phone Care Team Providers Care Cardiothoracic Anesthesia Technician Name Role Phone Iván Teixeira Primary Care Provider [phone] Allergies No known active allergies Medications albuterol [...] Vaccine ( - 2023-2 5 season) 2023 Depression Screening 03/23/2024 Pneumococcal Vaccine: 50+ Ye ars (1 of 1 - PCV) 2024 Zoster Vaccines (1 of 2) 2024 Cholesterol Screening (Lipid Panel) 05/11/2024 Colorectal Cancer Screening: Colonoscopy 05/11/2024 HIV Screening 05/11/2024 Hepatitis C Screening [...] patient's age to complete this topic Insurance [facility] Care Teams Cardiothoracic Anesthesia Technician Relationship Specialty Start Date End Date Iván Teixeira PA PCP - General Physician Change Control Coordinator 05/11/24
--- OUTSIDE RECORDS SUMMARY | 2024-11-15 11:46 | XMS_ITS | Clinical Summary ---
Author Organization [facility] Address [address] [place] [address] Phone Care Team Providers Care Junior Staff Accountant Name Role Phone Iván Teixeira Primary Care Provider [phone] Allergies No known active allergies Medications dilTIAZem (CARDIZEM CD) 120 MG 24 hr capsule Take 120 mg by mouth daily. Active flecainide (TAMBOCOR) 5 mg/mL oral suspension Take 100 mg by mouth 2 (two) times a day. Active oxyCODONE 5 MG immediate release tablet Take 1 tablet (5 mg total) by mouth every 4 (four) hours as needed for moderate pain. 5 tablet 9 Active Additional Information Patient not taking.Reported on 04/18/2024 minoxidiL (LONITEN) 2.5 MG tablet Take 1 tablet by mouth every morning. 5 Active mupirocin (BACTROBAN) 2 % ointment APPLY THIN FILM TOPICALLY TO RASH ON RIGHT CHEEK 3 TIMES A DAY FOR 7 DAYS 4 Active famciclovir (FAMVIR) 250 MG tablet Active cephalexin (KEFLEX) 250 MG capsule PLEASE SEE ATTACHED FOR DETAILED DIRECTIONS 4 Active predniSONE (DELTASONE) 20 MG tablet Take 1 tablet (20 mg total) by mouth daily with breakfast. 5 tablet 5 Active albuterol 90 mcg/actuation inhaler Inhale 2 puffs into the lungs every 4 (four) hours as needed for wheezing. 8.5 g 5 Active Active Problems Problem Noted Date Diagnosed Date Asthma 05/27/2023 Atrial fibrillation 05/27/2023 Fatigue 05/27/2023 Gastroesophageal reflux disease 05/27/2023 PCR negative for herpes simp cate virus types 1 and 2 (HSV-1 and HSV-2) DNA 05/27/2023 Obstructive sleep apnea syndrome 05/27/2023 Immunizations No known immunizations Social History Tobacco Use Types Packs/Day Years Used Date Smoking Tobacco: Never Smokeless Tobacco: Never Alcohol Use Standard Drinks/Week Comments Yes 0 (1 standard drink = 0.6 oz pur e alcohol) occasionally Education Answer Date Recorded Are you interested in more education? Not on onur e 04/18/2024 Are you concerned about learning? Not on file 04/18/2024 No 04/18/2024 No 04/18/2024 Digital Access Answer Date Recorded No 04/18/2024 No 04/18/2024 Reliable internet access at home? Not on file 04/18/2024 Device with a working camera? Not on file Sex and Gender Information Value Date Recorded Sex Assigned at Male 06/04/2018 11:38 PM EDT Legal Sex Male 11:28 PM EDT Gender Identity Male 06/04/2018 11:38 PM EDT Sexual Orientation Straight 06/04/2018 11 :38 PM EDT Last Filed Vital Signs Vital Sign Reading Time Taken Comments Blood Pressure 109/74 04/18/2024 8:16 AM EST Pulse 69 04/18/2024 8:16 AM EST Temperature 36.6 C (97.9 F) 04/18/2024 8:16 AM EST Respiratory Rate 17 04/18/2024 8:16 AM EST Oxygen Saturation 97% 04/18/2024 8:16 AM EST Inhaled Oxygen Concentration - - Weight 95.3 kg (210 lb) 06/04/2018 11:35 PM EDT Height 180.3 cm (5' 11 ) 06/04/2018 11:35 PM EDT Body Mass Index 29.29 06/04/2018 11:35 PM EDT Plan of Treatment Health Maintenance Due Date Last Done Comments Adult Td,Tdap Booster 1974 LIPID PANEL 1974 DEPRESSION SCREENING 1986 HEPATITIS C SCREENING 1992 HIV ONE-TIME SCREENING (18-6 5 YEARS) 1992 PNEUMOCOCCAL VACCINES (50+ y ears) (1 of 2 - PCV) 1993 COLOGUARD 2019 COLONOSCOPY 2019 COLORECTAL CANCER SCREENING 2019 FIT TEST 2019 FOBT 2019 SIGMOIDOSCOPY 2019 VIRTUAL COLONOSCOPY 2019 COVID-19 VACCINE (1 - 2023-2 5 season) 2023 ZOSTER VACCINES (1 of 2) 2024 SMOKING STATUS SCREENING (On ce After 26 Yrs) Completed 06/04/2018 HEPATITIS A VACCINES Aged Out No long er eligible based on patient's age to complete this topic HIB VACCINES Aged Out No longer eligi ble based on patient's age to complete this topic MENINGOCOCCAL VACCINES (ACWY) Aged Out No longer eligible based on patient's age to complete this topic MENINGOCOCCAL VACCINES (B) Aged Out N o longer eligible based on patient's age to complete this topic Medical Devices Not on file [facility] [address] [place] [place] [address] [place] [place] [address] [place], [place] [address] O O Care Teams Junior Staff Accountant Relationship Specialty Start Date End Date Iván Teixeira PA [address] [place] [address] [email or web address] PCP - General Physician Cart Pusher 04/18/24 Additional Source Comments The information contained in this document represents components of the legal health record. It is not the complete legal health record.[facility]
== END 2024-11-15 10:54 | disposition home or self-care (01) ==
LOC: HO.WFDLDS 10:53
PROVIDERS: Visit Provider Urology
DX: E29.1 Testicular hypofunction (principal)
CPT/HCPCS: 36415; 83002; 84403

== ENCOUNTER 2024-11-22 08:42 | Outpatient (AMB) | payer OTHER, SELFPAY ==
--- NOTE | 2024-11-22 08:42 | MHC.OFFVIS ---
Intake Visit Reasons: 2m/labs Intake Note: Patient is present for: TELEHEALTH 2MO FOLLOW UP Urology Medication:ENCLOMIPHENE Blood Thinner:NONE LABS DONE 11/15/24: LUTEINIZING HORMONE 6.2, TOTAL TESTO 791 Senior Biostatistician/Group Leader Required: No Accompanied by: Self / Same As Patient Allergies No Known Allergies (No Known Allergies*) Allergy (Verified 11/22/24 08:44) HPI Comments Details: Mark is a pleasant male. He is a patient of . He is seen for the following urologic conditions - male infertility - testicular insufficiency Telemedicine Evaluation 15 min Consultation [employer] Great response to enclomiphene 12.5 mg. T790. Would continue for 6 months with repeat lab Male Infertility Prior vasectomy approximately 2011 Children with prior partner Discussed process of vasectomy reversal and 12-18 month timeframe for appearance of sperm Given time since vasectomy success rate would be 70-80% Partner is 36 years old Concomitant gynecologic issues include endometriosis Based on partner age and concomitant gynecologic issues recommendation made to pursue reproductive assisted techniques [facility] [place] Testicular insufficiency Reports borderline low testosterone previously detected Had poor response to Clomid with joint pain Discussed this was likely due to the estrogenic component zuclomifene Enclomiphene - 11/14 T 790, LH 6.2 PFSH Medical History Paroxysmal atrial fibrillation Surgical History History of cardioversion Hx of knee surgery Hx of shoulder surgery Family History Father No problems noted. Mother No problems noted. Social History Patient Tobacco Use Status: Never used Tobacco Review of Systems Const Denies chills and Denies fever(s) Card Reports no additional complaints and Denies syncope Resp Denies cough GI Denies abdominal pain and Denies heartburn Reports as per HPI and Denies change in libido Neuro Denies syncope Psych Denies change in libido Endo Denies change in libido Physical Exam Const General: cooperative, healthy appearing, comfortable and no acute distress Orientation/consciousness: patient oriented x3 HEENT Face and sinus: Yes normal facial exam Mouth: moist mucous membranes Neck Neck: Yes normal visual inspection, Yes full ROM and Yes trachea midline Chest Chest palpation & inspection: normal inspection of the chest Resp Effort & Inspection: normal respiratory effort, able to speak in complete sentences and no respiratory distress GI Inspection: Yes normal to inspection Back/Spine/Pelvis Cervical Spine: normal cervical lordosis Thoracic/Lumbar Spine: thoracic and lumbar spine normal to inspection Skin General skin exam: no rashes or lesions noted Neuro General: patient oriented x3, gait normal, tone normal and moves all extremities Extrem General: Yes normal to inspection and Yes capillary refill normal Telehealth Telehealth Telehealth Platform: [employer] Location of provider rendering services: practice address Location of patient: address on file Patient Identification confirmed using: Name, : Yes Telehealth method: video Patient verbally consented to treatment: Yes Patient verbally consented to billing insurance company: Yes Patient informed of any privacy concerns related to visit: Yes Assessment & Plan Assessment & Plan (1) Hypogonadism in male: Code(s): E29.1 - Testicular hypofunction Category: Medical (2) Testicular insufficiency: Code(s): E29.1 - Testicular hypofunction Category: Medical Plan Continue enclomiphene Six-month follow-up Orders: Orders Testosterone, Total 5 Months E29.1 - Testicular hypofunction Lutenizing Hormone 5 Months E29.1 - Testicular hypofunction Estrad Free (Tot Ultra + Free) 5 Months E29.1 - Testicular hypofunction Medications: Refilled [enclomiphene] [facility] - Fax Patient Cell Number - [phone] 1 tab PO DAILY 90 tabs 1RF 90 days E29.1 - Testicular hypofunction Patient Instructions: This note is constructed using voice recognition software. While every effort has been made to ensure accuracy plug shaper hand errors may have been included. Imaging studies, laboratory and physical exam results were discussed and reviewed in detail. No major barriers to patient understanding were identified. An opportunity to ask questions regarding the treatment plan was provided. All questions were answered. The patient expressed understanding and agreement with the above treatment plan. The patient is aware they should contact our office by phone for worsening of their current condition or the appearance of new urologic symptoms. Compliance is encouraged with any medications and followup testing that is ordered. It is a privilege to participate in the urologic care of your patient. If you have any questions or concerns regarding treatment for the above conditions, or other urologic issues, please do not hesitate to contact me. The office telephone contact is [phone]. Sincerely, Dr Tripp Lakhani MD, [facility] - Urology Compassionate Specialist Care for the Genitourinary System Coding Level of Care Code Tele Est Pt Level 3 (28514) Complex EM visit Add On G2211 Diagnoses Hypogonadism in male E29.1 Testicular insufficiency E29.1
--- OUTSIDE RECORDS SUMMARY | 2024-11-22 09:27 | XMS_ITS | Clinical Summary ---
Author Organization [facility] [address] [facility] Address [address] [place] [address] Phone Care Team Providers Care Leather Stitcher Name Role Phone Iván Teixeira Primary Care Provider [phone] Allergies No known active allergies Medications albuterol [...] to complete this topic Insurance [facility] Care Teams Leather Stitcher Relationship Specialty Start Date End Date Iván Teixeira PA PCP - General Physician Biodiesel Production Technician 05/11/24
--- OUTSIDE RECORDS SUMMARY | 2024-11-22 09:28 | XMS_ITS | Continuity of Care Document ---
Author Organization [facility] [address] [place] [address] Phone [phone] Care Team Providers Care Personal Property Appraiser Name Role Phone Iván Teixeira Care Team Information Receiv er [phone] Problems Active Problems Provider Date Asthma TEQUILA [...] Medications SIG Qnty Indications Ordering Provider Date [id number] Tablets Take 1 Tablet By Mouth Twice Daily For Suppression. Take With Full Glass Of Josie Contreras Albuterol Sulfate HOY614(90Base) mcg/Act Aerosol Inhale 1 puff By Mouth [...] Result H/L Range Note Lipid Panel 05/29/2023 [facility] Cholesterol, Total 238 mg/dL High (<200) Triglyceride 91 mg/dL (<150) 1 HDL Chol 64 mg/dL (>39) LDL Cholesterol , Calculated 156 mg/dL High (0-130) Non HDL Cholesterol (Calc) 174 mg/dL High (<160) Complete Abc With Diff 05/29/2023 [facility] WBC 5.0 K/MM3 (4.0-11. 0) [...] ) Lymph # 1.2 K/MM3 (0.8-3.1 ) [place]# 0.4 K/MM3 (0.4-1.3 ) Eo # 0.2 K/MM3 (0.0-0.4 ) Baso # 0.0 K/MM3 (0.0-0.1 ) Abs. Imm Gran 0.0 K/MM3 Neut 61.7 % (44-76) Lymph 24.0 % (15-43) Monocyte 8.7 % (4.5-10. 5) Eo 4.4 % (0-6) Baso 0.8 % (0-2) Imm Gran 0.4 % Free Testosterone 05/29/2023 [facility] Testosterone, Total, LC/MS 259.6 Low 2 Percent Free Testosterone 3.47 3 Free Testosterone, Equilibrium 9.01 4 FSH 05/29/2023 [facility] FSH 3.4 MIU/ML (1.5-12. 4) 5 LH 05/29/2023 [facility] LH 3.0 MIU/ML (1.5-12. 4) 6 Prolactin 05/29/2023 [facility] Prolactin 8.8 NG/ML (4.0-15. 2) 1 Patient not fasting 2 Reference range: 264 .0 to 916.0 Unit: ng/dL (NOTE) This [facility] LC/MS-MS method is currently certified by the CDC Hormone Standardization Program (HoSt). Adult male reference interval is based on a population of healthy nonobese males (BMI <30) between 19 and 39 years old. Patricia et.al. JCEM 2017,102;6483-8580. PMID: 64474089. This test was developed and its performance characteristics determined by [facility]. It has not been cleared or approved by the Food and Drug Administration. 3 Reference range: 1.5 0 to 4.20 Unit: % 4 Reference range: 5.0 0 to 21.00 Unit: ng/dL Test performed at [address] [address] 5 Reference Range: Follicular: 3.5-12.5 mIU/mL Ovulation: [...]
--- OUTSIDE RECORDS SUMMARY | 2024-11-22 09:28 | XMS_ITS | Clinical Summary ---
Author Organization [facility] Address [address] [place] [address] Phone Care Team Providers Care Automotive Diagnostic Technician Name Role Phone Iván Teixeira Primary Care Provider [phone] Allergies No known active allergies Medications dilTIAZem [...] Medical Devices Not on file Insurance [facility] [address] [place], [place] [address] [place], [place] [address] [place] [address]O O O Care Teams Automotive Diagnostic Technician Relationship Specialty Start Date End Date Iván Teixeira PA [address] [place] [address] [email or web address] PCP - General Physician Residential Glazier 04/18/24 Additional Source Comments The information contained in this document represents components of the legal health record. It is not the complete legal health record.[facility]
== END 2024-11-22 10:17 | disposition home or self-care (01) ==
LOC: HO.HUSH 08:42
PROVIDERS: PCP Physician Assistant Medical; Visit Provider Urology
DX: E29.1 Testicular hypofunction (principal)
CPT/HCPCS: 99213; G2211

== ENCOUNTER → 2025-02-14 07:32 | Outpatient (REF) | payer OTHER, SELFPAY ==
--- NOTE | 2025-02-14 07:35 | CA_ITS ---
Transthoracic Echocardiogram Patient (Last, First, Middle): Addi Layne, Gender: M Date of : 1975 Age: 49 Procedure Date: 02/14/2025 Procedure Type: Transthoracic Echocardiogram Location: OP Height: 180.34 cm Weight: 95.26 kg BSA: 2.15 m2 Heart Rate: bpm BP: 110 / 70 mmHg Pit Tanner: TO Referring MD: Iván MANDEL Symptoms: AFIB HX. PAF HX Study Quality: Adequate with contrast ECG Rhythm: Sinus Conclusions: - The left ventricular systolic function is mildly decreased. The calculated ejection fraction is 46% by biplane method. - No obvious valvular pathology seen on this study. Findings Left Ventricle Normal left ventricular cavity size. There is normal left ventricular wall thickness. The left ventricular systolic function is mildly decreased. The calculated ejection fraction is 46% by biplane method. There is mild global hypokinesis. Diastolic function is normal for age. Right Ventricle Normal right ventricular cavity size and systolic function. Atria Both atria are normal in size. Aortic Valve There is a normal trileaflet aortic valve. There is no aortic valve stenosis. There is trace (trivial) aortic valve regurgitation. Mitral Valve The mitral valve appears normal. There is no mitral valve regurgitation. There is no mitral valve stenosis. Pulmonic Valve The pulmonic valve is likely normal. Tricuspid Valve There is trace tricuspid valve regurgitation. Tricuspid regurgitation envelope is inadequate for calculation of right ventricular systolic pressure. Great Vessels The asc aorta is normal in size. Venous The inferior vena cava is normal in size and collapses greater than 50% with inspiration. Pericardium/Pleural There is no evidence of pericardial effusion. Prior Study Comparison No significant change compared to prior study dated: 05/20/2016. Recommendations, Care & Conclusions No obvious valvular pathology seen on this study. Measurements 2D Linear Measurements IVSd: 0.80 0.6-0.9/0.6-1.0 cm LVIDd: 5.12 3.9-5.3/4.2-5.9 cm LVIDd Index: 2.38 2.4-3.2/2.2-3.1 cm/m2 LVIDs: 3.85 2.0-3.6 cm LVPWd: 0.88 0.7-1.1 cm LA Diam: 3.70 2.7-3.8/3.0-4.0 cm LAIDs Index: 1.72 1.5-2.3 cm/m2 LV Mass: 187.28 67-162/88-224 g LV Mass Index: 87.11 43-95/49-115 g/m2 LVOT Diam: 2.30 3.0+(-)1.3 cm 2D Systolic Function EF 4C: 47.00 >55% EF 2C: 42.70 >55% EF BiP: 46.00 >55% Mitral Valve MV Pk E: 0.76 MV PK A: 0.45 MV Decel Time: 194.00 E/A: 1.70 E'Lateral: 10.00 E'Medial: 8.16 E/E' Med: 9.40 E/E' Lat: 7.60 PHT: 57.00 MVA PHT: 3.86 Decel Cottle: 3.94 Aortic Valve AoV Pk Manuel: 1.27 AoV Mn Manuel: 0.91 AoV VTI: 0.31 AoV Pk Grad: 6.00 Aov Mn Grad: 4.00 CHUCHO Cont.VTI: 3.05 LVOT LVOT Pk Manuel: 1.01 LVOT Mn Manuel: 0.74 LVOT VTI: 0.23 LVOT Pk Grad: 4.00 LVOT Mn Grad: 2.00 LVOT Diam: 2.30 LVOT Area: 4.15 Diastolic Function MV Pk E: 0.76 MV Pk A: 0.45 E/A: 1.70 E'Medial: 8.16 E/E' Med: 9.40 E' Laterial: 10.00 E/E' Lat: 7.60 Right Ventricle TAPSE (mm): 22.40 TVS' Manuel: 10.90 Tricuspid Valve RA Press: 3.00 Great Vessels Aorta Sinus of Valsalva: 3.16 2.0-3.[address] Ridge: 2.61 1.7-3.4 cm Ao Asc: 3.00 2.1-3.4 cm Ao Arch: 2.50 Updated in Other Vendor System with Status of Final Hero Adamson MD electronically signed on 02/15/2025 8:24:42 AM with status of Final
--- OUTSIDE RECORDS SUMMARY | 2025-02-14 07:35 | XMS_ITS | Data Portability ---
Author Organization [place] - [facility] Address [address] [place] [address] Care Team Providers Care Electronic Gaming Device Supervisor Name Role Phone JEREMIAS STUBBS Referring Provider Assessment Encounter Date Assessment Date Assessment LastModified by Organization Details LastModified Time 06/16/2024 06/16/2024 Patient referred by prescriptionist due to silica exposure. History consistent with [...] patient declined. Patient discharged to PCP and prescriptionist. He may return for any otolaryngologic concerns [...] Recorded Time Impacted cerumen of bilateral ears 83533767984 69094 Active 2019 Impacted cerumen, bilateral ; Note: Date Diagnosed : 11/11/2019 3:32 PM (H61.23) Not Available [facility] 4 03:27:07 Conductiv e hearing loss 21338406 Active 2019 Conductiv e hearing loss, unilatera l, left ear, with unrestric princess hearing on the contralat eral side; Note: Date Diagnosed : 11/11/2019 3:32 PM (H90.12) Not Available [facility] 4 03:27:07 Allergic rhinitis 46538839 Active 2024 Sheryl sherman [place] - [facility] 5 15:22:59 Asthma 705118789 Active 2024 Sheryl sherman [place] [facility] 5 15:23:41 Problem Notes None recorded. Procedures Surgical History Date Name Laterality Status Provider Name and Address Organization Details Recorded Time 06/17/19 25 Fiberoptic Laryngoscopy (Comprehensive) completed Sheryl Castro [facility] 06/16/2024 10:46:06 Imaging Results None recorded. Procedure [...] mg tablet 2018 active Medicati on ID: [id number] D uration Value: 90 Brand Name: famciclo vir Send Method: E-Prescr ibed Sub s Allowed: subs OK Speci al Instruct ion: TK 1 T PO BID Medi cationGe nericNam e: famciclo vir Not Available Not Available Not Available meclizine 25 mg tablet TAKE 1 TABLET BY MOUTH THREE TIMES DAILY NEEDED FOR DIZZINES S 06/16 completed Not Available Not Available Not Available benzonata te 100 mg capsule TAKE 1 CAPSULE BY MOUTH 3 TIMES A DAY NEEDED. 06/16 completed Not Available Not Available Not Available flecainid e 100 mg tablet 03/27 completed Medicati on ID: [id number] D uration Value: 90 Brand Name: flecaini de Send Method: E-Prescr ibed Sub s Allowed: subs OK Speci al Instruct ion: TAKE 1 TABLET BY MOUTH TWICE A DAY Medi cationGe nericNam e: flecaini de Not Available Not Available Not Available diltiazem CD 120 mg capsule,e xtended release 24 hr 04/30 completed Medicati on ID: [id number] D uration Value: 90 Brand Name: diltiaze [...] Updated DateTime 06/16/2024 180.34 cm 28.6 kg/m2 85348.44 g Lina White [place] - [facility] 06/16/2024 10:27:53 Social History None recorded. Functional Status None recorded. Mental Status None recorded. Family History Nothing Reported. Medical History Condition Response Allergies/Hayfever Y Heart Problems Y Anxiety N Tonsil Infections N Emphysema N Migraines N Thyroid Problems N Depression N COPD N Developmental Delay N Glaucoma N Nasal or Sinus Problems N Anemia N Immune System Disorder N Anesthesia Complications N Heart Attack (TN) N Other Skin Condition N Diabetes N Rhinitis N Bleeding Disorder N Food Allergy N Hearing Loss N Arthritis Y Hyperlipidemia N Cancer N Stroke N Dementia N Nasal polyps N Asthma Y Sleep Disorder N High Cholesterol N GERD/Reflux N Liver Disease N Headaches N Fibromyalgia N Hypertension N Speech Delay N Kidney Disease N Past Encounters Encounter ID Performer Location Encounter Start Date Encounter Closed Date Diagnosis/Indication Diagnosis SNOMED-CT Code Diagnosis ICD10 Code Diagnosis IMO Codes Diagnosis Note [id number] SHERYL CASTRO PA-C [facility] [address] [facility] [place] [address] 06/16/2024 10:16:46 06/16/2024 10:47:11 Allergic rhinitis 86520787 J30.9 Exposure t o potentially hazardous chemical 3171371432 41260 Z77.098 Asthma 845529110 J45.90 9 Health Concerns Section Related Observation LastModified by Organization Detai ls LastModified Time None Recorded Concern Status LastModified by Organization Details LastModified Time None Recorded Advance Directives Directive None Recorded Payers Insurance Date Sequence Insurance Name Policy Number Policy Alfredo Covered Member ID Alfredo Member ID Guarantor Name 06/20/[address] [place] [address] [id number] Addi Layne [id number] Addi Layne Notes Date Note Type Note Provider Name and Address Organization Details Recorded Time 06/16/2024 text/html ROS as noted in the HPI 49 year old male presents for nasal evaluation. Manager English wanted him evaluated due to silica exposure. Manager English is treating him for asthma. Uses an [...] a tobacco smoker nor a heavy drinker. Sheryl sherman [place] - [facility] 06/16/2024 15:25:02
--- OUTSIDE RECORDS SUMMARY | 2025-02-14 07:35 | XMS_ITS | Continuity of Care Document ---
Author Organization [facility] [address] [facility] [address] [place] [address] Phone [phone] Care Team Providers Care Seafood Process Worker Name Role Phone Iván Teixeira Care Team Information Receiv er [phone] Problems Active Problems Provider Date Asthma TEQUILA [...] Medications SIG Qnty Indications Ordering Provider Date [id number] Tablets Take 1 Tablet By Mouth Twice Daily For Suppression. Take With Full Glass Of Josie Contreras Albuterol Sulfate MOB483(90Base) mcg/Act Aerosol Inhale 1 puff By Mouth [...] Result H/L Range Note Lipid Panel 05/29/2023 [facility] Cholesterol, Total 238 mg/dL High (<200) Triglyceride 91 mg/dL (<150) 1 HDL Chol 64 mg/dL (>39) LDL Cholesterol , Calculated 156 mg/dL High (0-130) Non HDL Cholesterol (Calc) 174 mg/dL High (<160) Complete Abc With Diff 05/29/2023 [facility] WBC 5.0 K/MM3 (4.0-11. [...] ) Lymph # 1.2 K/MM3 (0.8-3.1 ) [place]# 0.4 K/MM3 (0.4-1.3 ) Eo # 0.2 K/MM3 (0.0-0.4 ) Baso # 0.0 K/MM3 (0.0-0.1 ) Abs. Imm Gran 0.0 K/MM3 Neut 61.7 % (44-76) Lymph 24.0 % (15-43) Monocyte 8.7 % (4.5-10. 5) Eo 4.4 % (0-6) Baso 0.8 % (0-2) Imm Gran 0.4 % Free Testosterone 05/29/2023 [facility] Testosterone, Total, LC/MS 259.6 Low 2 Percent Free Testosterone 3.47 3 Free Testosterone, Equilibrium 9.01 4 FSH 05/29/2023 [facility] FSH 3.4 MIU/ML (1.5-12. 4) 5 LH 05/29/2023 [facility] LH 3.0 MIU/ML (1.5-12. 4) 6 Prolactin 05/29/2023 [facility] Prolactin 8.8 NG/ML (4.0-15. 2) 1 Patient not fasting 2 Reference range: 264 .0 to 916.0 Unit: ng/dL (NOTE) This [facility] LC/MS-MS method is currently certified by the CDC Hormone Standardization Program (HoSt). Adult male reference interval is based on a population of healthy nonobese males (BMI <30) between 19 and 39 years old. Patricia et.al. JCEM 2017,102;7395-1295. PMID: 16134416. This test was developed and its performance characteristics determined by [facility]. It has not been cleared or approved by the Food and Drug Administration. 3 Reference range: 1.5 0 to 4.20 Unit: % 4 Reference range: 5.0 0 to 21.00 Unit: ng/dL Test performed at [address] [address] 5 Reference Range: Follicular: 3.5-12.5 mIU/mL Ovulation: [...]
--- OUTSIDE RECORDS SUMMARY | 2025-02-14 07:35 | XMS_ITS | Clinical Summary ---
Author Organization [facility] [address] [facility] Address [address] [place] [address] Phone Care Team Providers Care Oil Spreader Operator Name Role Phone Iván Teixeira Primary Care Provider [phone] Allergies No known active allergies Medications albuterol [...] Health Maintenance Due Date Last Done Comments Colorectal Cancer Screening: Colonoscopy 1974 DTaP,Tdap,and Td Vaccines (1 - Tdap) 1993 Hepatitis B Vaccines (1 of 3 - 19+ 3-dose series) 1993 Depression Screening 03/23/2024 Pneumococcal Vaccine: 50+ Ye ars (1 of 1 - PCV) 2024 Zoster Vaccines (1 of 2) 2024 Cholesterol Screening (Lipid Panel) 05/11/2024 HIV Screening 05/11/2024 Hepatitis C Screening 05/11/2024 Social Influencers of Health Screening 05/11/2024 COVID-19 Vaccine (1 - 2024-2 6 season) 2024 Influenza Vaccine (#1) 2024 RSV Immunization Adult Patie nts (1 - 1-dose 75+ series) 2049 HIB Vaccines Aged Out No longer eligi [...] patient's age to complete this topic Insurance [facility] Care Teams Oil Spreader Operator Relationship Specialty Start Date End Date Iván Teixeira PA PCP - General Physician Door To Door Sales Representative 05/11/24
--- OUTSIDE RECORDS SUMMARY | 2025-02-14 07:35 | XMS_ITS | Data Portability ---
Author Organization [facility], [facility] Address [address] [place] [address] Care Team Providers Care Transformer Stock Clerk Name Role Phone JEREMIAS STUBBS Primary Care Provider Assessment Encounter Date Assessment Date Assessment LastModified by Organization Details LastModified Time 11/25/2023 11/25/2023 I am seeing the patient today under the supervision of Dr Montalvo who was available but who did not see the patient. [email or web address] Not available 11/25/2023 14:09:12 09/29/2024 09/29/2024 I am seeing the patient today under the supervision of Dr. Martinez who was available but who did not see the patient. HPI: Patient comes in for recheck of bilateral shoulder pain. Was last seen by my colleague for underlying impingement and received a cortisone injection with good relief for the last 10 months. Pain is returned over the last couple weeks over the lateral brachium. Difficulty with overhead motions and reaching behind their back. Has had no new injuries no other modalities. Past family, medical, social history and review of systems has been reviewed, updated and is located in the patient s chart. Examination: The patient is well appearing and in no apparent distress. Alert and oriented x3. Gait is symmetric. Vital signs per intake sheet . Evaluation of the bilateral shoulder has no effusion erythema or warmth. Good muscle bulk when compared bilaterally. Has supple range of motion of that shoulder. 5/5 strength rotator cuff and biceps tendon. Positive impingement arc negative cross body. Impression: Impingement bilateral shoulder Plan: Nature diagnosis discussed with patient today. Both surgical and nonsurgical options are reviewed. At this time patient wishes to go forward with a repeat cortisone injection. Please see procedure note for further documentation about the procedure performed today. Postinjection precautions were reviewed. Follow-up as symptoms dictate. [facility] speech recognition multiskill operator software was used to create portions of this document. An attempt at proofreading has been made to minimize errors. Please call for corrections. Not available 09/28/2024 14:48:16 Plan of Treatment Reminders Order Date Submit Date Provider Last Modified By Organization Details Last Modified Time Details Appointments None record ed. Lab None record ed. Referral None record ed. Procedures None record ed. Surgeries None record ed. Imaging None record ed. Medication Orders None record ed. Patient TargetsNo targets recorded. Patient InstructionsNo instructions recorded. Reason for Referral None Reported. Results Created Date Observation Date Name Description Value Unit Range Abnormal Flag Note LastModifiedBy Organization Detail LastModifiedTime 11/21/19 24 04/07/2023 imagi ng/mervin santiagoos tic resul t No observ ation record ed. [email or web address] Not Available 10/23 07:44:25 Result Notes None recorded. Problems Name Problem SNOMED Code Status Onset Date Resolution Date Notes Provider Name and Address Organization Details Recorded Time No complaint s 053547342 Active Status: 'I'; Not Available [facility], [facility] 4 09:20:31 Impingeme nt syndrome of left shoulder region 343745985824 104 Active 2015 Problem Code: M75.42; Problem Code Type: ICD-10; Status: 'A'; Not Available [facility] 4 11:43:12 Impingeme nt syndrome of right shoulder region 764179400055 102 Active 2015 Problem Code: M75.41; Problem Code Type: ICD-10; Status: 'A'; Not Available [facility] 4 11:43:12 Idiopathi c osteoarth ritis 418706520 Active 2015 Problem Code: M19.011; Problem Code Type: ICD-10; Status: 'A'; Not Available [facility], [facility] 4 11:43:12 Problem Notes None recorded. Procedures Surgical History Date Name Laterality Status Provider Name and Address Organization Details Recorded Time 5 JZShoulder INJ Case completed Hakeem Brito PA-C [address] [place] [address] [address], [place], [address], [facility] 09/28/2024 14:47:21 4 JZShoulder INJ Case completed Yoshi Tello PA-C [address], [place], [address], [facility] 11/25/2023 14:09:05 Imaging Results None recorded. Procedure Notes None recorded. Medical Equipment None Reported. Allergies No known drug allergies Medications Name Sig Start Date Stop Date Status Note LastModified by Organization Details LastModified Time valacyclovi r 1 gram tablet TAKE 1 TABLET BY MOUTH TWICE A DAY active Not Available Not Available No t Available cephalexin 250 mg capsule PLEASE SEE ATTACHED FOR DETAILED DIRECTION S active Not Available Not Available No t Available prednisone 20 mg tablet TAKE 1 TABLET BY MOUTH DAILY WITH BREAKFAST active Not Available Not Available No t Available minoxidil 2.5 mg tablet TAKE 2 TABLETS BY MOUTH EVERY DAY active Not Available Not Available No t Available famciclovir 250 mg tablet TAKE 1 TABLET BY MOUTH TWICE DAILY FOR SUPPRESSI ON. TAKE WITH FULL GLASS OF WATER active Not Available Not Available No t Available meclizine 25 mg tablet TAKE 1 TABLET BY MOUTH THREE TIMES DAILY NEEDED FOR DIZZINESS 11/24 completed Not Available Not Available Not Available benzonatate 100 mg capsule TAKE 1 CAPSULE BY MOUTH 3 TIMES A DAY NEEDED. active Not Available Not Available No t Available pseudoephed rine-guaife nesin ER 80-700 mg tablet,exte nded release Percocet 5-325MG Tablet 1-2 Q 4-6 Hours Prn 06/28 completed Statu s: 'Disc ontin ued'; Not Available Not Available Not Available polymyxin B sulfate 10,000 unit-trimet hoprim 1 mg/mL eye drops INSTILL 2 DROPS INTO BOTH EYES, BOTH 4 TIMES A DAY,X7 DAYS active Not Available Not Available No t Available mupirocin 2 % topical ointment APPLY THIN FILM TOPICALLY TO RASH ON RIGHT CHEEK 3 TIMES A DAY FOR 7 DAYS active Not Available Not Available No t Available albuterol sulfate HFA 90 mcg/actuati on aerosol inhaler INHALE 1 PUFF EVERY 6 HOURS NEEDED active Not Available Not Available No t Available Clomid 50 mg tablet TAKE 1 TABLET BY MOUTH EVERY OTHER DAY 11/24 completed Not Available Not Available Not Available amoxicillin 875 mg-mary akers clavulanate 125 mg tablet TAKE 1 TABLET BY MOUTH EVERY 12 HOURS FOR 7 DAYS active Not Available Not Available No t Available fluticasone 113 mcg-salmete rol 14 mcg/actuati on breath activated powdr TAKE 1 PUFF BY MOUTH TWICE A DAY active Not Available Not Available No t Available Vitals Date Recorded Body height Body mass index (BMI) Body weight Provider Name and Address Organization Details Last Updated DateTime 09/29/2024 180.34 cm 29.3 kg/m2 02688.4 g Rin Flores [place] [facility] 09/29/2024 10:04:34 Date Recorded Body height Body mass index (BMI) Body weight Provider Name and Address Organization Details Last Updated DateTime 11/25/2023 180.34 cm 29.3 kg/m2 76630.4 g Anshul Smith [place] [facility] 11/25/2023 14:06:08 Social History Question Answer Notes LastModified by [employer] Details LastModified Time Tobacco Smoking Status Never Smoker iRn sherman [facility] 09/29/2024 10:04:56 What Is Your Relationship Status? [email or web address] Information not available 09/29/2024 Sex: Unknown Functional Status Question Answer Note LastModified by [employer] Details LastModified Time How many times per week do you consume alcohol? Less than 1 time per week Information not available 09/29/2024 Do you use any illicit or recreational drugs? No Information not available 09/29/2024 What is your level of alcohol consumption? Occasional [email or web address] Information not available 09/29/2024 Mental Status None recorded. Family History Nothing Reported. Medical History Condition Response Allergies/Hayfever N Coronary Artery Disease N Anxiety/Depression N Breathing or lung disorders N Emphysema N Nerve Disorders N Thyroid Problems N COPD N Pacemaker N Anemia N Kidney/Bladder Problems N Vascular Disease N Heart Trouble Y Heart Attack ([place]) N Gastrointestinal Disease N Cholesterol N Diabetes N Autoimmune disease N Bleeding Disorder N Inflammatory Joint disease N Orthotics N Arthritis Y Seizures/Epilepsy N Blood Clot N AIDS/HIV N Congestive Heart Failure (CHF) N Acid Reflux (GERD) N Cancer N Stroke N Asthma N Circulation Problems N Peripheral Vascular Disease N Sleep Apnea N Hepatitis N Heart Disease N Rheumatoid Arthritis N Arrhythmia N Pulmonary Embolism N Headaches N Fibromyalgia N Hypertension N Osteoporosis N Past Encounters Encounter ID Performer Location Encounter Start Date Encounter Closed Date Diagnosis/Indication Diagnosis SNOMED-CT Code Diagnosis ICD10 Code Diagnosis IMO Codes Diagnosis Note [id number] KASIA Rose [address] [place] [address] 11/25/2023 13:53:34 12/21/2023 12:30:27 Impingement syndrome of right shoulder region 4646918875 18772 M75.41 Impingemen t syndrome of left shoulder region 3032650444 14037 M75.42 [id number] KASIA Hernandez [address] [place] [address] 09/29/2024 09:47:22 10/10/2024 14:14:59 Impingement syndrome of right shoulder region 5435856769 12676 M75.41 Impingemen t syndrome of left shoulder region 5038721179 13888 M75.42 Health Concerns Section Related Observation LastModified by Organization Detai ls LastModified Time None Recorded Concern Status LastModified by Organization Details LastModified Time None Recorded Advance Directives Directive None Recorded Payers Insurance Date Sequence Insurance Name Policy Number Policy Alfredo Covered Member ID Alfredo Member ID Guarantor Name 10/10/2024 1 [facility] [id number] Addi Layne [id number] Addi Layne
--- OUTSIDE RECORDS SUMMARY | 2025-02-14 07:35 | XMS_ITS | Clinical Summary ---
Author Organization [facility] Address [address] [place] [address] Phone Care Team Providers Care Research Technician Name Role Phone Iván Teixeira Primary Care Provider [phone] Allergies No known active allergies Medications dilTIAZem [...] FOBT 2019 SIGMOIDOSCOPY 2019 VIRTUAL COLONOSCOPY 2019 RSV VACCINE (1 - Risk 50-74 years 1-dose series) 2024 ZOSTER VACCINES (1 of 2) 2024 INFLUENZA VACCINE (#1) 2024 COVID-19 VACCINE (1 - 2024-2 6 season) 2024 SMOKING STATUS SCREENING (On ce After [...] Medical Devices Not on file Insurance O [address] [place], [place] [address]O [facility] [place] [address] [facility] HMO Care Teams Research Technician Relationship Specialty Start Date End Date Iván Teixeira PA [address] [place] [address] [email or web address] PCP - General Physician Lockstitch Lining Maker 04/18/24 Additional Source Comments The information contained in this document represents components of the legal health record. It is not the complete legal health record.[facility]
== END ==
LOC: HO.CARD 07:32
PROVIDERS: PCP Physician Assistant Medical; Visit Provider Physician Assistant Medical
DX: I48.91 Unspecified atrial fibrillation (principal)
CPT/HCPCS: 93306; Q9957

== ENCOUNTER → 2025-02-14 07:35 | Outpatient (BNV) | payer OTHER, SELFPAY | PROVIDERS: PCP Physician Assistant Medical; Visit Provider Internal Medicine | DX: I51.89 Other ill-defined heart diseases (principal); Z86.79 Personal history of other diseases of the circulatory system | CPT/HCPCS: 93306 ==